=== PATIENT | male | born 1960 | race Caucasian/White ===

== ENCOUNTER 2024-09-28 10:17 | Observation (INO) ==
--- NOTE | 2024-09-15 13:08 | PAT Medication Instructions ---
Medication Instructions Date of Service September 15, 2024 Home Medications cholecalciferol (vitamin D3) 125 mcg (5,000 unit) tablet (Vitamin D3) 125 mcg PO QAM verapamil 240 mg tablet,extended release 240 mg PO QAM diclofenac sodium 75 mg tablet,delayed release 75 mg PO QAM dutasteride 0.5 mg-tamsulosin ER 0.4 mg capsule ext.release 24hr mphas 1 cap PO QAM gabapentin 100 mg tablet 100 mg PO QAM PRN potassium gluconate 550 mg tablet 0 meq PO QAM metronidazole 0.75 % topical gel 1 applic topical DAILY PRN ASK your surgeon for instructions diclofenac sodium 75 mg tablet,delayed release 75 mg PO QAM STOP taking 24 hours before surgery metronidazole 0.75 % topical gel 1 applic topical DAILY PRN DO NOT take the morning of surgery cholecalciferol (vitamin D3) 125 mcg (5,000 unit) tablet (Vitamin D3) 125 mcg PO QAM potassium gluconate 550 mg tablet 0 meq PO QAM Take morning of surgery With a small sip of water, OTHERWISE NOTHING TO EAT OR DRINK AFTER MIDNIGHT: verapamil 240 mg tablet,extended release 240 mg PO QAM dutasteride 0.5 mg-tamsulosin ER 0.4 mg capsule ext.release 24hr mphas 1 cap PO QAM gabapentin 100 mg tablet 100 mg PO QAM PRN(if needed) Other Notes If you have any questions please call us at [phone] or [phone] or [phone] or [phone]
--- NOTE | 2024-09-21 10:39 | Anesthesiology Consultation ---
Date of Service September 21, 2024 Assessment & Plan (1) Encounter for pre-operative examination: - Infectious disease screening: Per assessment on 09/21/24- No known recent infectious disease contacts or current infectious disease symptoms. - Outpatient joint assessment: Pt currently scheduled for inpatient pathway. If surgeon requests review for outpatient joint pathway, patient is not recommended candidate for outpatient joint program from anesthesia standpoint based on available information. - PCP visit (09/16/24): "Based on the patient's HPI and physical examination I feel that the patient is clinically optimized for the given surgical procedure.. labs and EKG done through [facility]. Unable to access them at this time. As long as labs and EKG are normal and patient gets clearance from Cardiology I feel that the patient is clinically optimized for the given procedure from a Family Medicine standpoint." Preop testing forwarded to PCP for continuity of care- unremarkable findings. - Patient acceptable risk for surgery pending cardiology preop office visit ([facility] Cardio, appt /- note in draft). Chart Review Chart Review: Patient seen in Pre Admission Testing Teaching & Discussion Pre-Anesthesia Teaching/Discussion Notes: Instructed NPO after midnight before surgery,except medications with 15 cc of water. Medication instructions provided according to the PAT guidelines. History Surgery Operation Date: 09/28/24 15:05 Proposed Procedures p Right Total Shoulder Arthroplasty Reverse - Armaan Coyne MD Height/Weight Height: 6 ft 1 in Weight: 115.2 kg Allergies Allergy/AdvReac Type Severity Reaction Status Date / Time No Known Allergies Allergy Verified 09/14/24 09:35 Medications Home Medications Medication Instructions Recorded Confirmed Last Taken cholecalciferol (vitamin D3) 125 125 mcg PO QAM 01/26/20 09/14/24 02/07/20 mcg (5,000 unit) tablet (Vitamin D3) verapamil 240 mg tablet,extended 240 mg PO QAM 01/26/20 09/14/24 03/30/24 06:30 release diclofenac sodium 75 mg 75 mg PO QAM 03/18/24 09/14/24 Unknown tablet,delayed release dutasteride 0.5 mg-tamsulosin ER 1 cap PO QAM 03/18/24 09/14/24 03/30/24 06:30 0.4 mg capsule ext.release 24hr mphas gabapentin 100 mg tablet 100 mg PO QAM PRN leg cramps 03/18/24 09/14/24 Unknown potassium gluconate 550 mg tablet 0 meq PO QAM 03/18/24 09/14/24 Unknown metronidazole 0.75 % topical gel 1 applic topical DAILY PRN rosacea 03/23/24 09/14/24 Unknown aspirin 81 mg capsule 81 mg PO DAILY 09/21/24 09/21/24 Unknown rosuvastatin 20 mg tablet (Crestor) 20 mg PO DAILY 09/21/24 09/21/24 Unknown Past Medical History Medical History Acquired pes planovalgus of right foot Enlarged prostate History of colon polyps History of diverticulitis (~2018) History of DVT (deep vein thrombosis) (2015) RLE, s/p trauma History of kidney stones (~2022) Hypertension Left ventricular outflow tract obstruction Dynamic HOCM Follows with Masha Matthew Osteoarthritis Restless leg syndrome Rosacea SI (sacroiliac) joint inflammation SI joint Injection 03/2024 Sleep apnea Non-compliant with CPAP Exercise / Class Metabolic Activity II 4-5 Yardwork/Stairs/Walk up hill (one FS: no CP, no SOB) Past Family History Family History Other No significant family history Past Surgical History Surgical History H/O abdominal surgery (~2018) Hernia surgery-infection with MRSA- revision History of ankle surgery right ankle fusion History of arthroscopy of right shoulder History of bursectomy left elbow History of colon resection History of incisional hernia repair History of rotator cuff surgery Left History of surgery on arm Right (hardware) History of tonsillectomy History of tooth extraction Hx of colonoscopy Past Anesthesia History No Hx of Anesthesia Complications and No Family Hx of Anesthesia Complications History of PONV No Hx of PONV and No Hx of Motion Sickness Social History Smoking Status: Never smoker Do You Dip or Chew Tobacco: No Hx Alcohol Use: Yes Alcohol type: beer and hard liquor alcohol intake frequency: a few times a month Hx Substance Use: No substance use type: does not use Review of Systems Patient denies chest pain, shortness of breath, dyspnea on exertion, fever, chills, cough, wheezing, palpitations. Physical Exam Vital Signs BP 105/66 P 83 TEMP 98.1 SP02 98%RA RESP 16 Physical Full cervical extension range of motion. Full TMJ range of motion. TMD 3 finger breaths Mallampati Score II Dentition: missing sides including lower front left side Lungs: clear throughout to auscultation Cardiac: regular rate and rhythm, no murmurs noted Spine: normal Carotid arteries: negative bruit Extremities: no LE edema Lab Results Anesthesia Preop Results Results Anesthesia Widget: WBC 5.66 K/ul (4.8-10.8) 09/21/24 Hgb 12.7 g/dl (14.0-18.0) L 09/21/24 Hct 38.9 % (42.0-52.0) L 09/21/24 Plt 212 K/uL (130-400) 09/21/24 Na 136 mmol/L (136-145) 09/21/24 K 4.6 mmol/L (3.5-5.1) 09/21/24 Cl 103 mmol/L (98-107) 09/21/24 CO2 29 mmol/L (21-32) 09/21/24 BUN 14 mg/dl (6-23) 09/21/24 Creat 0.74 mg/dl (0.6-1.4) 09/21/24 Glucose Level 100 mg/dl (70-99(Fasting)) H 09/21/24 PT 10.3 Seconds (9.0-12.0) 09/21/24 PTT 26 Seconds (21-31) 09/21/24 INR 0.9 (0.9-1.1) 09/21/24 Urine Color Yellow 09/21/24 Urine Appearance Cloudy (Clear) A 09/21/24 Urine pH 6.5 (4.5-7.5) 09/21/24 Urine Specific [place] 1.019 (1.000-1.030) 09/21/24 Urine Protein Negative (Negative) 09/21/24 Urine Glucose (UA) Negative (Negative) 09/21/24 Urine Ketones Negative (Negative) 09/21/24 Urine Blood Negative (Negative) 09/21/24 Urine Nitrite Negative (Negative) 09/21/24 Urine Bilirubin Negative (Negative) 09/21/24 Urine Urobilinogen Negative (Negative) 09/21/24 Urine Leukocyte Esterase Negative (Negative) 09/21/24 Urine WBC (Auto) 0-5 /hpf (0-5) 09/21/24 Urine RBC (Auto) 0-2 /hpf (0-2) 09/21/24 Urine Hyaline Casts (Auto) 0-2 /lpf (0-2) 09/21/24 Urine Epithelial Cells (Auto) 0-2 /hpf (0-2) 09/21/24 Urine Bacteria (Auto) None Seen (None Seen) 09/21/24 Blood Type A Positive 09/21/24 Antibody Screen NEGATIVE 09/21/24 Testing Electrocardiogram Date: 08/02/24 Sinus rhythm with PACs at 98bpm. Left posterior fascicular block. Septal infarct (cited on or before 03/28/2024). Chest X-Ray Date: 03/23/24 Findings: + NAD Echocardiogram Date: 09/19/24 LVEF 55 to 59%. Grade 3 diastolic dysfunction. The inducible peak instantaneous LV outflow tract gradient is 33 mmHg. Asymmetric hypertrophy involves the septum. The maximal LV thickness at end diastole is 1.9 cm. Mild pulmonary hypertension. Estimated PASP 40 mmHg. Dilated IVC with reduced collapsibility with sniff indicates an elevated right atrial pressure of 15 mmHg. Mild AR/MR/TR. Stress Test Date: 06/27/24 Nondiagnostic for ischemia due to failure to reach greater than 85% MPHR. LVEF 60 to 64%. Small sized basal posterior and lateral wall motion abnormality with akinesis of the segments. Mid cavitary peak gradient with exercise is approximately 23 mmHg. LVOT peak gradient with exercise is approximately 12 mmHg. Other Testing Cardiac CT Date: 09/01/24 Findings are consistent with CAD-RADS category 1 (minimal CAD with 1% - 24% stenosis), The Agatston calcium score is 13. The exam quality is good (mild artifacts are present). The patients age and sex matched coronary calcium content is 32 % (CARUSO). Coronary Findings: There is right dominant coronary anatomy. The exam quality is good (mild artifacts are present). The Agatston calcium score is 13. The left main Agatston calcium score is 4. The LAD Agatston calcium score is 10. The patients age and sex matched coronary calcium content is 32 % (CARUSO). Left main coronary arterial wall contains calcified plaque. The left main coronary artery <25% stenosis. The proximal left anterior descending artery is not stenotic. The mid left anterior descending coronary arterial wall contains calcified plaque. The mid left anterior descending coronary artery has minimal (<25% ) stenosis. The distal left anterior descending artery is not stenotic. The left descending artery has 2 diagonal branches. The circumflex is well visualized and is normal with no plaque or stenosis. The circumflex artery has 1 obtuse marginal branches. The obtuse marginal branches are visualized and are not stenotic. The right coronary artery is well visualized and is normal with no plaque or stenosis. The right posterior lateral coronary artery is not stenotic. The posterior descending coronary artery is not stenotic. The aortic root and proximal ascending aorta are normal. The descending thoracic aorta is normal in size. The main pulmonary artery and the bifurcation are normal. The pulmonary venous drainage is normal. The pericardium is of normal thickness without evidence of significant pericaridal effusion.
--- NOTE | 2024-09-27 18:58 | History & Physical Report ---
Date of Service September 27, 2024 Assessment & Plan (1) Rotator cuff tear arthropathy of right shoulder: Plan: Rotator cuff arthropathy right shoulder with pain and weakness despite partial repair rotator cuff with balloon arthroplasty. Progressive arthropathy since balloon resorption. Patient essentially has pseudoparalysis with poor overhead function and failed limited goals PT. Proceed with reverse total shoulder replacement and debridement of any remnants of the balloon and will require excisional debridement of old suture anchors and suture material.. (2) Failure of rotator cuff repair: History of Present Illness Chief Complaint: Chronic progressive right shoulder pain weakness Primary Care Provider: Tita Worley PA-C 64-year-old male who has chronic right shoulder pain despite having had a rotator cuff repair with a balloon arthroplasty. Since balloon resorption patient's had proximal migration humerus and progressive rotator cuff arthropathy. Clinically failed rotator cuff repair. Patient denies headaches, sweats, fevers, chills, double vision, blurred vision, cough, sore throat, dysphagia, chest pain, sob, wheezing, n/v/d/c, numbness, tingling, fatigue, urinary symptoms, mood disorders. ROS positive for sleep apnea/loud snoring, rheumatoid arthritis, low back pain, acid reflux hiatal hernia, large prostate, history of kidney stones. Allergies Allergy/AdvReac Type Severity Reaction Status Date / Time No Known Allergies Allergy Verified 09/14/24 09:35 Home Medications Medication Instructions Recorded Confirmed Type cholecalciferol (vitamin D3) 125 125 mcg PO QAM 01/26/20 09/14/24 History mcg (5,000 unit) tablet (Vitamin D3) verapamil 240 mg tablet,extended 240 mg PO QAM 01/26/20 09/14/24 History release diclofenac sodium 75 mg 75 mg PO QAM 03/18/24 09/14/24 History tablet,delayed release dutasteride 0.5 mg-tamsulosin ER 1 cap PO QAM 03/18/24 09/14/24 History 0.4 mg capsule ext.release 24hr mphas gabapentin 100 mg tablet 100 mg PO QAM PRN leg cramps 03/18/24 09/14/24 History potassium gluconate 550 mg tablet 0 meq PO QAM 03/18/24 09/14/24 History metronidazole 0.75 % topical gel 1 applic topical DAILY PRN rosacea 03/23/24 09/14/24 History aspirin 81 mg capsule 81 mg PO DAILY 09/21/24 09/21/24 History rosuvastatin 20 mg tablet (Crestor) 20 mg PO DAILY 09/21/24 09/21/24 History Past Med/Surg History Problem List (Updated 09/27/24 @ 18:56 by Armaan Coyne MD) Rotator cuff tear arthropathy of right shoulder Failure of rotator cuff repair Subacromial impingement of right shoulder Traumatic complete tear of rotator cuff Encounter for pre-operative examination Medical History Osteoarthritis Acquired pes planovalgus of right foot Rosacea History of colon polyps SI (sacroiliac) joint inflammation SI joint Injection 03/2024 History of DVT (deep vein thrombosis) (2015) RLE, s/p trauma Enlarged prostate Restless leg syndrome History of diverticulitis (~2018) Hypertension Left ventricular outflow tract obstruction Dynamic HOCM Follows with Masha Matthew History of kidney stones (~2022) Sleep apnea Non-compliant with CPAP Surgical History History of arthroscopy of right shoulder History of rotator cuff surgery Left History of surgery on arm Right (hardware) H/O abdominal surgery (~2018) Hernia surgery-infection with MRSA- revision History of tonsillectomy History of tooth extraction History of ankle surgery right ankle fusion Hx of colonoscopy History of colon resection History of incisional hernia repair History of bursectomy left elbow Family History Other No significant family history Social History Smoking Status: Never smoker Second Hand Exposure: No; Do You Dip or Chew Tobacco: No; Tobacco Cessation Education Requested by Patient: No Hx Alcohol Use: Yes Alcohol type: beer and hard liquor Hx Substance Use: No Preferred Language: Turkish Communication Ability: Effective House Wrecker Required: No Beliefs That Will Affect Care: None Current Living Situation: Spouse Other Information That Helps Us Care for You: No Feels Safe at Home: Yes Safety Concerns: Feels Safe At This Time Assistive Devices: Contacts Review of Systems All systems reviewed & are unremarkable except as noted in HPI & below Physical Exam Constitutional: WD/WN, vitals as above Respiratory: normal respiratory effort; no respiratory distress Cardiovascular: Rate/Rhythm: regular rate and regular rhythm Musculoskeletal: Right shoulder with subacromial crepitation painful range of motion with active forward flexion 110 degrees with passive flexion 170. Active abduction 70 degrees with passive abduction 120 degrees. Weakness with resisted strength testing and otherwise neurovascular exam is normal. Skin: no rashes, warm and dry Neurologic: normal touch/pain/proprioception Psychiatric: A+Ox3, euthymic affect Results & Data Diagnostic Findings Radiographs demonstrate proximal migration of the humerus consistent with balloon resorption and failed partial repair rotator cuff to prevent proximal migration with progressive rotator cuff arthropathy.
[~2024-09-28 10:17] MED LIST: BUPIVACAINE 0.5 % 5 MG/1 ML PF 10ML VIAL ONE; MIDAZOLAM HCL 1 MG/ML 2ML VIAL ONE; MISSING Provider Signature on ORDER(s) SCH; fentaNYL citrate PF 100 MCG/2 ML VIAL ONE
[2024-09-28] MEDS: dexAMETHasone**PF** 10 MG/ML VIAL IV SCH (11:25)
[2024-09-28] MEDS: CeleBREX 200 MG CAP PO SCH (11:25)
[2024-09-28] MEDS: ACETAMINOPHEN 500 MG TAB PO SCH ×2 (11:25→22:05)
[2024-09-28] MEDS: FAMOTIDINE 20 MG TAB PO SCH (11:25)
[2024-09-28] MEDS: METOCLOPRAMIDE HCL 10 MG TABLET PO SCH (11:26)
[2024-09-28] MEDS: LR 15ML/HR IV SCH (11:26)
[2024-09-28] MEDS: GABAPENTIN 600 MG DOSE PO SCH (11:26)
[2024-09-28] MEDS: LR 60ML/HR IV SCH (11:26)
[2024-09-28] MEDS ORDERED: LIDOCAINE 2% 2 ML VIAL/AMP(20MG/ML) INFIL ONE (12:12)
[2024-09-28] MEDS ORDERED: ROCURONIUM BROMIDE 10 MG/ML 5 ML VIAL IV ONE (12:12)
[2024-09-28] MEDS ORDERED: PROPOFOL IV EMULSION 10 MG/ML 20 ML VIAL IV ONE (12:12)
[2024-09-28] MEDS ORDERED: ePHEDrine sulfate 50 MG/ML AMP IV PRN (12:44)
[2024-09-28] MEDS ORDERED: PROMETHAZINE HCL 6.25 MG in SODIUM CHLORIDE 0.9% 50 ML IV PRN (12:44)
[2024-09-28] MEDS ORDERED: ATROPINE SULFATE 0.1 MG/ML 10ML SYR IV PRN (12:44)
[2024-09-28] MEDS ORDERED: ONDANSETRON INJ 2 MG/ML 2 ML VIAL IV PRN ×2 (12:44→18:10)
[2024-09-28] MEDS ORDERED: fentaNYL citrate PF 100 MCG/2 ML VIAL IV PRN (12:44)
[2024-09-28] MEDS: TRANEXAMIC ACID 1,000 MG **IV Pre-op IV SCH (12:49)
--- NOTE | 2024-09-28 12:50 | History & Physical Bridge Note ---
Date of Service September 28, 2024 History & Physical Bridge Note I have examined the patient, reviewed the History & Physical and in the interval since the performance of the History & Physical I have noted the following changes of clinical significance: no changes noted
[2024-09-28] MEDS: ceFAZolin 2000MG 2,000 MG/15 ML SYR IV SCH ×2 (13:02→20:12)
[2024-09-28] MEDS ORDERED: ePHEDrine sulfate 50 MG/ML AMP ONE (13:14)
[2024-09-28] MEDS ORDERED: ePHEDrine sulfate 50 MG/5 ML SYR ONE (13:14)
[2024-09-28] MEDS ORDERED: KETAMINE HCL 10MG/ML SYR ONE (13:37)
[2024-09-28] MEDS ORDERED: ONDANSETRON INJ 2 MG/ML 2 ML VIAL ONE (15:04)
[2024-09-28] MEDS: TRANEXAMIC ACID 1,000 MG **IV Intra-op IV SCH (15:48)
[2024-09-28] MEDS ORDERED: SUGAMMADEX SODIUM 200 MG/2 ML VIAL IV ONE ×3 (15:50→15:51)
--- NOTE | 2024-09-28 16:22 | Operative Report ---
Post Operative Report Pre & Post Diagnosis Operation Date: 09/28/24 12:45 Pre-Op Diagnosis: Right Shoulder rotator cuff arthropathy with osteoarthritis, failed partial rotator cuff repair with balloon arthroplasty. Post-Op Diagnosis: Right Shoulder cuff arthropathy with osteoarthritis, failed partial rotator cuff repair with balloon arthroplasty. I identified the patient and participated in the time-out.: Yes Procedure Operation Date: 09/28/24 12:45 Actual Procedures p Right Reverse Total Shoulder Arthroplasty(Right), excisional debridement sutu re anchors and suture tapes and scarred subacromial bursa and torn rotator cuff.- Armaan Coyne MD Surgeon Armaan Coyne MD Media Planner Adalberto GUERIN Estimated Blood Loss 300 Findings Consistent with Post-Op Diagnosis Specimens Humeral head Drains 2 Hemovac Anesthesia Type General Regional Complications none Disposition Disposition: Recovery Room Indications 64-year-old male status post arthroscopic partial repair rotator cuff infraspinatus tendon with limited decompression distal clavicle excision and balloon arthroplasty. Over time despite balloon arthroplasty and partial repair patient went on to proximal migration of the humerus consistent with failed rotator cuff repair. Patient's developed rotator cuff arthropathy with [id number] articulation now between greater tuberosity and acromion process and a pseudo paralytic shoulder. Description of Procedure The patient was taken to the operating room and anesthetized under regional block and general anesthetic. The patient was positioned on the operating table in a 30 beach chair position with a towel roll under the medial border of the right scapula. The arm was draped free to be able to manipulate the shoulder as needed. The right upper extremity was prepped and draped in usual sterile fashion. Exam demonstrated preoperatively only had 70 degrees flexion and abduction to 45 degrees prior to anesthesia. Passive range of motion was 170 degrees forward flexion and abduction and 80 degrees external rotation. There were old scars from arthroscopic procedure. These are all well-healed. There is no erythema there is no particular swelling there is no drainage of any type. No increased warmth about the shoulder. There was crepitation. An anterior deltopectoral approach was performed. A longitudinal incision was made in the deltopectoral interval. The skin was incised sharply. Subcutaneous flaps were elevated off the fascia. The cephalic vein was dissected out and retracted medial with the pectoralis and crossing veins were tied off and divided.. The clavipectoral fascia was divided at the lateral margin of the conjoined tendon and extended up to the CA ligament. The following findings were noted there was a thickened scarred subacromial bursa material between the greater tuberosity and the acromion likely remnants of the balloon. This was all debrided out thoroughly. Biceps tendon had prior tenotomy or rupture there was a remnant of tendon tissue remaining. The subscapularis tendon tissue had tendinopathy and thinning with some reasonably thick inferior subscapularis tendon but the upper aspect was thinner tissue. The supraspinatus tendon was torn and retracted the infraspinatus tendon repair had failed and there was a friable degenerative end of the tendon. The teres minor was intact still. There were developing greater tuberosity spurs. There were spurs on the lesser tuberosity. There was some inferior articular spurs on humeral head as well.. The upper centimeter of the pectoralis was released for inferior exposure. A self-retaining retractor was placed. The biceps tendon remnant at the level of the pectoralis release was secured to the pectoralis tendon with [id number] #2 FiberWire suture and the remainder of the proximal tendon sheath and biceps remnant was resected. The subscapularis muscle fibers were split longitudinally at the level of the circumflex vessels. The circumflex vessels were identified and tied off with silk ties and divided laterally. A Kitner elevator was used to free up the inferior fibers of the subscapularis off of the capsule. The axillary nerve was identified with a tug test and protected with a blunt Madhu retractor between the nerve and the capsule. The subscapularis tendon was then taken down off of the lesser tuberosity subperiosteally, a Vicryl traction suture was placed and a subperiosteal dissection was performed along the neck of the humerus as the arm was gradually externally rotated exposing the humeral head. The humeral head findings demonstrated moderate osteoarthritic changes grade 2 and 3 more wear superiorly and area of rotator cuff tear moderate to small circumferential osteophytes. retractors were readjusted and the inferior osteophytes were all resected using a rongeur . A Hairston elevator was used to assist in releasing the capsule of the neck of the humerus. The capsule was divided with Omer scissors down to the glenoid released off the anterior glenoid and the rotator interval was released to meet the capsular release and a 360 release of the subscapularis was accomplished. A Fukuda retractor was placed into the joint retracting the humeral head posterior. Glenoid findings demonstrated moderate arthritic changes but no exposed bone on the glenoid. Degenerative changes of the labrum and during exposure there were spurs anteriorly and inferiorly on the glenoid. The labrum and biceps tendon was resected. an anterior-inferior and posterior inferior capsular release were performed with electrocautery and a Hairston elevator on bone with the axillary nerve protected inferiorly by the retractor. With this exposure it was more readily available to visualize the infraspinatus and supraspinatus tendon tears which were retracted back toward the glenoid and both had friable frayed ends and this tissue was debrided back. There was some more scarred bursal tissue possibly remnants of the balloon that were debrided at this time as well. Attention was then taken to the humeral preparation. The cutting guide was placed into the humeral head. It was positioned at 20 of retroversion. Oscillating saw was used to resect the humeral head giving the cut above the level of the posterior rotator cuff insertion site. The old suture anchors whic h were peek anchors with ultra braid suture and tapes were excised including all suture material and anchors. The humerus was then prepared for the stem. I used the ascend flex stem from [employer]. The sizing broaches were used followed by trial broaches up to a size 7B Long which had the appropriate fit and fill. The appropriate sized cut protector was placed. The humerus was then retracted posterior to the glenoid. The glenoid was sized for a 29 baseplate. The guide for the baseplate was positioned in a 10 inferior tilt and the central drill hole was made. The reamer for the 29 mm baseplate was used. The central drill was widened for the peg. The hydroxyapatite coated to aequalis 29 mm standard post baseplate was impacted into position. The base plate was transfixed with superior and inferior locking screws and anterior and posterior compression screws with stable fixation. The fan reamer was used for the 42 millimeter glenoid sphere. After irrigation the 42 mm centered glenoid sphere was impacted onto the baseplate and the security screw was tightened. Attention was taken back to the humerus. The cut protector was removed and the +0 high offset humeral tray trial was assembled to the trial stem rotated appropriately to get bony coverage and then screwed in position. A trial reduction was performed. There is little bit of shock even with a +9 so we went ahead and put the +6 high offset humeral tray in place and then with a +6 insert this gave satisfactory stability and no shuck. The trials were removed. 3 drill holes are made into the harder bone in the bicipital groove area and 3 #5 FiberWire sutures were placed transosseously. The canal was irrigated with pulsatile saline solution. The final component was assembled. The final component was 7B long stem ascend flex type with +6 mm high offset tray with a 42 mm / +6 mm reversed flex polyethylene insert. This was then impacted into the humerus with a tight press-fit. It was reduced to the glenoid sphere. Stability was verified. Subscapularis was repaired with the #5 FiberWire sutures using Woody-Frank suture technique. Lateral row soft tissue repair was performed with #2 FiberWire [id number] sutures. The pectoralis was repaired with #2 FiberWire [id number] sutures reinforcing the biceps tendon repair. The arm was taken through a range of motion which demonstrated 150 degrees forward elevation and 100 degrees abduction and 80 degrees external rotation. The implant was stable through the range of motion tested. A 3-minute Betadine soak was performed. The wound was then copiously irrigated with pulsatile lavage saline solution. 2 Hemovac drains were placed. The deltopectoral interval was closed with [id number] #1 Vicryl sutures. The subcutaneous tissues were closed with 2-0 Vicryl sutures. The skin was closed with surgical nikunj. A Silverlon sterile dressing was applied and a shoulder immobilizer. TRUONG Mendez, my physician assistant professor of chemistry acted as first line supervisor throughout the procedure .He performed functions including patient positioning, arm positioning, prepping and draping, soft tissue retraction, instrument management, suture management and performed the subcutaneous and skin closure and will participate in the postoperative care of the patient. I attest to the content of the Intraoperative Record and any orders documented therein. Any exceptions are noted below.
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
--- OUTSIDE RECORDS SUMMARY | 2024-09-28 16:39 | External Medical Summary | Summary of Care ---
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 2 Each 5 1 Active Diclofenac Sodium 75 MG Oral Tablet Delayed Release (Voltaren)Indicati ons:Sacroiliitis (HCC) Take 1 Tablet by mouth in [...] 240 MG Oral Tablet Extended Release (Isoptin SR)Indications:Hyp ertrophic non-obstructive cardiomyopathy (HCC) Take 1 Tablet by mouth in the morning. 90 Tablet 4 5 Active Aspirin 81 MG Oral Tablet Chewable (Aspirin 81) Take 1 Tablet by mouth in the morning. Active Rosuvastatin Calcium 20 MG Oral Tablet (Crestor) Take 1 Tablet by mouth in the morning. 30 Tablet 11 5 Active Dutasteride-Tamsul osin HCl 0.5-0.4 MG Oral Capsule Take 1 Capsule by mouth in the morning. 90 Capsule 3 4 09/27/19 25 Discontin ued(Refil l) documented as of this encounter (statuses as of 09/28/2024) Active Problems Problem Noted Date Diagnosed Date Hypertrophic non-obstructive cardiomyopathy 08/19 LVH (left ventricular hypertrophy) 04/28/2018 Incisional hernia, without obstruction or gangre ne 11/26/2016 Vitamin D insufficiency 10/01/2015 BPH (benign prostatic hyperplasia) 09/12/2015 Diverticulosis of large intestine without hemorr imelda 09/12/2015 Obstructive sleep apnea of adult 09/12/2015 documented as of this encounter (statuses as of 09/28/2024) Resolved Problems Problem Noted Date Diagnosed Date [...] as of this encounter (statuses as of 09/28/2024) Immunizations Name Administration Dates Next Due COVID-19 mRNA, LNP-s, No Pre serve, 2-Dose Series ([employer]) 06/15/2021 COVID-19, MRNA-LNP, PF, 30 M CG/0.3 mL, 12 YRS AND ABOVE, IM (Fluentify-Comirnaty) 07/08/2023 Covid-19, Mrna, Lnp-s, Pf, B ivalent, [...] No 09/16/2024 Does the household have a re gular source of income? 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 Answer Date of Assessment Author No 06/22/2015 1:15 PM EST Shama Uribe RN * Are you blind or do [...] of Assessment Author No 06/22/2015 1:15 PM EST Shama Uribe RN * Because of a physical, mental, [...] Entry Date Author No 06/22/2015 1:15 PM EST Shama Uribe RN documented in this encounter Plan of Treatment Upcoming Encounters Date Type Department Care Team (Late st Contact Info) Description 10/13/2024 10:00 AM EST Appointment Radiology, [place] [address] [place] [address] 10/13/2024 12:00 PM EST Appointment PET CT IMAGING, [place] [address] [place] [address] 10/31/2024 8:30 AM EDT Laboratory Laboratory, [place] [address] [phone] [facility] [address] [address] 12/07/2024 9:20 AM EDT Office Visit Family [facility], [place] [address] [phone] Mariusz Montiel PA-C [address] [address] 09/27/2025 3:45 PM EST Office Visit Urology [facility] [address] [phone] German Urbano Jr., MD [address] [id number] Pending Results Name Type Priority Associated Diagnoses Date /Time REFERRED TEST, [facility] (LAB USE ONLY) Lab Routine LVH (left ventricular hypertrophy) Hypercalcemia 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 Screw Selftap 3.5x18 204.818 - [id number] Implanted:Qty : 5 on 06/22/2015 by Gurwinder Funez Jr., [place] [facility] [place]: Wrist SYNTHES 204.818 / / Screw Locking Va 24mm - [id number] Implanted:Qty : 2 on 06/22/2015 by Gurwinder Funez Jr., [place] [facility] [place]: Wrist SYNTHES 02.210.124 / / Scrw Lkg 2.4mm Va 22mm - [id number] Implanted:Qty : 2 on 06/22/2015 by Gurwinder Funez Jr., [place] [facility] [place]: Wrist SYNTHES 02.210.122 / / Screw Selftap 3.5x16 204.816 - [id number] Implanted:Qty : 1 on 06/22/2015 by Gurwinder Funez Jr., [place] [facility] [place]: Wrist SYNTHES 204.816 / / Dbx 2.5cc 130873 - [id number] - [id number] Implanted:Qty : 1 on 06/22/2015 by Gurwinder Funez Jr., [place] [facility] [place]: Wrist MUSCULOSKELETAL TRANSPLANT FND 09/21/2016 [id number] / [id number] / Mesh Flat Sheet 10x14 [id number] - [id number] Implanted:Qty : 1 on 11/25/2016 by Sarmad Sierra DO at OR [facility] N/A: Abdomen CR BARD : DAVOL 07/14/2021 [id number] / / [id number] Bard Soft Mesh Implanted:Qty : 1 on 11/03/2017 by Layne Ernst MD [place] [facility] [place]/A: Abdomen 08/16/2022 [id number] / [id number] / [id number] documented as of this encounter Visit Diagnoses Diagnosis LVH (left ventricular hypertrophy) Cardiomegaly Hypercalcemia 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 No Does the patient have Health Care Power of Attor edlia? No * Full Code Date Activated Date [...] Directives occurred with: Not Discussed Care Teams Cone Tender Relationship Specialty Start Date End Date Tita Worley PA-C [address] [facility] [address] [address] PCP - General Physician Life Manager 10/13/19 documented as of this encounter
--- OUTSIDE RECORDS SUMMARY | 2024-09-28 16:39 | External Medical Summary | Summary of Care ---
Author Name Unknown Organization [facility] Address [address] [facility] [facility] [address] Phone [phone] Care Team Providers Care Polishing Wheel Repairer Name Role Phone Tita Worley PA-C Primary Care Provider +1- [phone] Reason for Visit * Reason Onset Date Comments Advice 09/23/2024 Encounter Details Date Type Department Care Team (Late st Contact Info) Description 09/23/2024 Telephone Cardiology, [place] [address] [place] [address] Jimena Joseph PA-C [address] [place] [address] Advice Allergies No known active allergiesdocumented as of this encounter (statuses as of 09/23/2024) Medications SURGICAL COMPRESSION STOCKING 20 to 30mm [...] as of this encounter (statuses as of 09/23/2024) Active Problems Problem Noted Date Diagnosed Date Hypertrophic non-obstructive cardiomyopathy 08/19 LVH (left ventricular hypertrophy) 04/28/2018 Incisional hernia, without obstruction or gangre ne 11/26/2016 Vitamin D insufficiency 10/01/2015 BPH (benign prostatic hyperplasia) 09/12/2015 Diverticulosis of large intestine without hemorr imelda 09/12/2015 Obstructive sleep apnea of adult 09/12/2015 documented as of this encounter (statuses as of 09/23/2024) Resolved Problems Problem Noted Date Diagnosed Date [...] as of this encounter (statuses as of 09/23/2024) Immunizations Name Administration Dates Next Due COVID-19 mRNA, LNP-s, No Pre serve, 2-Dose Series (Eniram) 06/15/2021 COVID-19, MRNA-LNP, PF, 30 M CG/0.3 mL, 12 YRS AND ABOVE, IM ([facility]) 07/08/2023 Covid-19, Mrna, Lnp-s, Pf, B ivalent, [...] 09/16/2024 Does the household have a re lar source of income? 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 [address] * Telephone Encounter - Livia Ruvalcaba OSA - 09/23/2024 8:32 AM EST Person calling: Gianna Relationship to patient: [place] Phone/Fax to return call: [phone] Reason for call(brief): advice Pharmacy: N/A Provider Name:Jimena Joseph Detailed message to office:COURT Katz, from [place]. Gianna states patients procedure is Thursday and asks that Jimena sign her note so they can pass patient. Please advise. documented in this encounter Plan of Treatment Upcoming Encounters Date Type Department Care Team (Late st Contact Info) Description 09/27/2024 3:45 PM EST Office Visit Urology [place] [facility] [address] [facility] [address] [place] [address] German Urbano Jr., MD [address] [place] [address] 10/13/2024 10:00 AM EST Appointment Radiology, [place] [address] [place] [address] 10/13/2024 12:00 PM EST Appointment PET CT [facility], [facility] [address] [place] [address] 10/31/2024 8:30 AM EDT Laboratory Laboratory, [place] [address] [phone] Jaspreet [address] [place] [address] 12/07/2024 9:20 AM EDT Office Visit Family [facility], [place] [address] [phone] Mariusz Montiel PA-C [address] [address] Health Maintenance Due Date Last Done Comments [...] this encounter Medical Devices Implanted Type Area Calcine Furnace Tender Device Identifier Shelf Expiration Date Model / Serial / Lot [place] Volar Plate 9h Right Implanted:Qty : 1 on 06/22/2015 by Gurwinder Funez Jr., MD at [place] [facility] Right: Wrist SYNTHES 02.110.009 S / / Description:Implant from set . Screw Selftap 3.5x18 204.818 - [id number] Implanted:Qty : 5 on 06/22/2015 by Gurwinder Funez Jr., MD at OR [facility] [place] Right: Wrist SYNTHES 204.818 / / Screw Locking Va 24mm - [id number] Implanted:Qty : 2 on 06/22/2015 by Gurwinder Funez Jr., MD at OR [facility] [place] Right: Wrist SYNTHES 02.210.124 / / Scrw Lkg 2.4mm Va 22mm - [id number] Implanted:Qty : 2 on 06/22/2015 by Gurwinder Funez Jr., MD at OR [facility] [place] Right: Wrist SYNTHES 02.210.122 / / Screw Selftap 3.5x16 204.816 - [id number] Implanted:Qty : 1 on 06/22/2015 by Gurwinder Funez Jr., MD at OR [facility] [place] Right: Wrist SYNTHES 204.816 / / Dbx 2.5cc [id number] - [id number] - [id number] Implanted:Qty : 1 on 06/22/2015 by Gurwinder Funez Jr., MD at OR [facility] [place] Right: Wrist MUSCULOSKELETAL TRANSPLANT FND 09/21/2016 [id number] / [id number] / Mesh Flat Sheet 10x14 [id number] - [id number] Implanted:Qty : 1 on 11/25/2016 by Sarmad Sierra DO at OR [facility] N/A: Abdomen CR BARD : DAVOL 07/14/2021 [id number] / / [id number] Bard Soft Mesh Implanted:Qty : 1 on 11/03/2017 by Layne Ernst MD at OR [facility] N/A: Abdomen 08/16/2022 [id number] / [id number] / [id number] documented as of this encounter Advance Directives [...] Directives occurred with: Not Discussed Care Teams Polishing Wheel Repairer Relationship Specialty Start Date End Date Tita Worley PA-C [address] [facility] [address] [facility] [place] [phone] PCP - General Physician Bicycle Assembler 10/13/19 documented as of this encounter
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
--- OUTSIDE RECORDS SUMMARY | 2024-09-28 16:40 | External Medical Summary | Summary of Care ---
Author Name Unknown Organization [facility] Address [address] [place] [address] Phone [phone] Care Team Providers Care Client Administrator Name Role Phone GaurangTita ruiz Richard CARPENTERC Primary Care Provider +1- [phone] Reason for Referral * Precert (Within 10 days (routine)) - Pending Review Specialty Diagnoses / Procedures Referred By Contac t Referred To Contact Radiology Diagnoses LVH (left ventricular hypertrophy) Procedures PET CT MYOCARDIAL METABOLIC FUNCTION Selvin Hoffman MD [address] [place] [address] Phone: tel: fax: Referral ID Status Reason Start Date Expiration Date V isits Requested Visits Authorized [id number] Pending Review 09/23/[phone] * Precert (Within 10 days (routine)) - Pending Review Specialty Diagnoses / Procedures Referred By Contac t Referred To Contact Radiology Diagnoses LVH (left ventricular hypertrophy) Procedures NM MYOCARDIAL PERFUSION SPECT SINGLE REST OR STRESS Selvin Hoffman MD [address] [place] [address] Phone: tel: fax: Referral ID Status Reason Start Date Expiration Date Visits Requested Visits Authorized [id number] Pending Review Precert 09/23/[phone] Encounter Details Date Type Department Care Team (Late st Contact Info) Description 09/22/2024 10:30 AM EST Telemedicine Cardiology [facility] [address] [place] [address] Selvin Hoffman MD [address] [place] [address] LVH (left ventricular hypertrophy)*; Hypercalcemia; Atherosclerosis of [place] coronary artery of [place] heart with angina pectoris (HCC) Allergies No known active allergiesdocumented as of this encounter (statuses as of 09/22/2024) Medications SURGICAL COMPRESSION STOCKING 20 to 30mm [...] as of this encounter (statuses as of 09/22/2024) Active Problems Problem Noted Date Diagnosed Date Hypertrophic non-obstructive cardiomyopathy 08/19 LVH (left ventricular hypertrophy) 04/28/2018 Incisional hernia, without obstruction or gangre ne 11/26/2016 Vitamin D insufficiency 10/01/2015 BPH (benign prostatic hyperplasia) 09/12/2015 Diverticulosis of large intestine without hemorr imelda 09/12/2015 Obstructive sleep apnea of adult 09/12/2015 documented as of this encounter (statuses as of 09/22/2024) Resolved Problems Problem Noted Date Diagnosed Date [...] as of this encounter (statuses as of 09/22/2024) Immunizations Name Administration Dates Next Due COVID-19 mRNA, LNP-s, No Pre serve, 2-Dose Series (Cympel) 06/15/2021 COVID-19, MRNA-LNP, PF, 30 M CG/0.3 [...] Industry Job Start Date Job End Date 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 History Sarmad Victor is a 64 year old year old who had a shoulder # in March 2024 and as part of preoperative check up found to have EKG changes that led to cardiology eval. He has not had any problems with PETERSON, chest pains, syncope. 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 He has not had any symptoms or limitations. He gets light headed (when it's really hot) when he bends forward--happens sometimes. Update 09/22/24 As per patient preference, connection with the patient via audio only occurred. The patient was informed this was a phone call only visit and was identified by name and date of . The patient agreed to participate. Total call duration was 30 minutes. Review of cardiac Symptoms (-) dyspnea (-) chest pain (-) syncope (-) palpitations Physical Activity Level: As above. Hydration Level: Drinks at least 50oz Family History: Mother: 72 years, smoker and PAD and gangrene, PE, Factor V Leiden Grandfather 67 years [place] Father: 76 years, lung cancer and lymphoma, smoker. Other: 1 sibling: sister has no heart problems, Factor V 2 children: no heart issues. Past Medical History: Diagnosis Date Diverticulosis of large intestine without hemorrhage 09/12/2015 DVT (deep venous thrombosis) (HCC) 07/03/2015 Related to trauma, hematology work up negative. Hypertrophic cardiomyopathy (HCC) Left ventricular outflow tract obstruction LVH (left ventricular hypertrophy) 04/28/2018 Obstructive sleep apnea of adult 09/12/2015 CPAP Preoperative cardiovascular examination 04/28/2018 Pulmonary embolism (HCC) 06/26/2015 Trauma related, hematology work up negative. Past Surgical History: Procedure Laterality Date BX LYMPH NODE-SUPERFIC Left 06/25/2015 BIOPSY LYMPH NODE OPEN SUPERFICIAL performed by Nasra Brewster MD at OR [facility] COLONOSCOPY 10/26/2008 RADIUS AND ULNA FX W/FIXATION Right 06/22/2015 OPEN TREATMENT OF RADIUS AND ULNA performed by Gurwinder Funez Jr., MD at [facility] REMOVE TONSILS & ADENOIDS, UNDER 12 As a child REPAIR ARM TENDON/MUSCLE Left 2011 Dr. Coyne REPAIR INITIAL INCISIONAL HERNIA N/A 11/25/2016 REPAIR INITIAL INCISIONAL HERNIA STRANGULATED performed by Sarmad Sierra DO at OR [facility] REPAIR INITIAL INGUINAL HERNIA REDUCIBLE AGE 5 OR MORE Right [address] Dr[address] Sierra REPAIR RECURRENT INCISIONAL HERNIA N/A 11/03/2017 REPAIR RECURRENT INCISIONAL HERNIA REDUCIBLE performed by Layne Ernst MD at OR [facility] SACROILIAC JOINT INJECT W/GUIDANCE Left 03/17/2024 INJECTION SACROILIAC JOINT performed by Damaso Morrison DO at OR [facility] Social History Tobacco Use Smoking status: Never Passive exposure: Yes Smokeless tobacco: Never Vaping Use Vaping status: Never Used Substance Use Topics Alcohol use: Yes Alcohol/week: 3.0 standard drinks of alcohol Types: 3 12 oz of beer per week Comment: 1-2 beers infrequently Drug use: No 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 ROS: Constitutional: No change in weight, no weakness or fatigue, no fever, sweats or chills Eyes: No amaurosis fugax Ears: No loss of hearing Mouth/Throat: No snoring, no teeth or gum problems. Pulmonary: No dyspnea, no cough. Cardiac: As above Gastrointestinal: No dysphagia, abdominal pain, no significant heartburn, no blood in stools or black tarry stools. Vascular: no symptoms of claudication. Hematology: Denies bleeding problems. Musculoskeletal: Negative. Skin: Negative Neuro: No TIA/CVA symptoms. : No dysuria, no frequency and no nocturia. Psych: No depression and no anxiety. Current Outpatient Medications Medication Sig Dispense Refill SURGICAL COMPRESSION STOCKING 20 to 30mm knee high. 2 Each 5 Dutasteride-Tamsulosin HCl 0.5-0.4 MG Oral Capsule Take 1 Capsule by mouth in the morning. 90 Capsule 3 Diclofenac Sodium 75 MG Oral Tablet Delayed [...] of patient's allergies indicates: No Known Allergies INVESTIGATIONS: Echocardiography Date IVS/PW Max (cm) Site of max LVH Rest gradient Valsalva gradient Site of obstruction NUNU/LAD BETSY MR LVEF Other findings 08/2024 1.9 Basal sept 33 LVOT-mid 55-59 RVSP 40, RAp 15 Stress Echo Date BP response METS Rest LVOTg Valsalva gradient Exercise gradient Other findings 06/2024 normal 8.4 23 26 23 60-64, akinetic lateral wall CMR Date IVS/PW max (cm) Site AML (mm) LGE % BETSY LVEF NUNU Other Findings 06/03/24 1.9cm Basal sept OK in thinned basal and mid IL 66 49 Rhythm Monitor Type Date NS-Ventricular Tachycardia Atrial fibrillation Other Findings zio 04/2024 - - Coronary Risk Assessment Type Date Findings CCTA 08/2024 <25% LM and mLAD, CCS 32%jasmin Personal Review of prior investigations: CMR reviewed with patient Physical Exam: Phone visit. Synopsis of Disease Profile: The table below provides a summary of the disease morphology, clinical profile, sudden cardiac risk assessment and genetics. Year of Diagnosis 2019 Type Isch CM with ? Compensatory septal LVH Obstruction/max gradients SCD Risk factors Ventricular Tachycardia Syncope (non vagal) Family h/o SCD Max Hypertrophy >30mm Abnormal BP response LGE >15% LA size (mm)/NUNU ICD MR severity Euro-HCM SCD 5 year risk NYHA class Genotype Impression: Cardiomyopathy likely ischemic (old infarct in IL segment) with likely compensatory septal hypertrophy (has VUS in LAMA4 and RYR2), true HCM is unlikely. No evidence of significant CAD to explain IL thinning. Will check alpha gal and PET imaging. The patient is quite asymptomatic. 2. Minimal CAD on CCTA Started baby ASA, and Crestor 3. Sleep apnea but does not use CPAP Needs to see sleep specialist for other options. 4. DVT related to accident 5. Right shoulder injury needs replacement. Scheduled next week. Idiopathic hypercalcemia Seen by endocrinology-- possible parathyroidoma. I would be concerned if he has underlying sarcoidosis which is causing high calcium and also his cardiac phenotype. PET imaging ordered. The following treatment plan was discussed with the patient: Therapeutic Strategy: Mild LVOTO Secondary Causes/Phenocopies: For sarcoid and Fabry's today Sudden cardiac risk assessment: No VT or other high risk features. Exercise: Moderate intensity exercise has been studied in a randomized controlled clinical trial and found to be safe and improve functional capacity (RESET-HCM trial). The 2020 AHA HCM guidelines recommend a Class I indication for moderate intensity recreational exercise at 150-300 minutes per week. Genetics and Family Screening: The autosomal dominant nature of the disease and its implications for progeny were discussed. Screening imaging testing of children and siblings were also discussed. Ifgenetic testing is pursued this would simplify screening in other family members. Prognosis: Good Follow up: 6 months. Total visit time was 30 minutes which included discussion of investigations, disease education and management strategy. CC: Tita Worley PA-C documented in this encounter Miscellaneous Notes * Addendum Note - Tracy Ivey TECH - 09/22/2024 3:18 PM ESTAddended by: TRACY IVEY on: 09/22/2024 03:18 PM Modules accepted: Orders documented in this encounter Plan of Treatment Upcoming Encounters Date Type Department Care Team (Late st Contact Info) Description 09/27/2024 3:45 PM EST Office Visit Urology [facility] [address] [place] [address] German Urbano Jr., MD [address] [address] 10/31/2024 8:30 AM EDT Laboratory Laboratory, [place] [address] [phone] [facility] [address] [address] 12/07/2024 9:20 AM EDT Office Visit [facility], [place] [address] [phone] Mariusz Montiel PA-C [address] [address] Scheduled Orders Name Type Priority Associated Diagnoses Orde r Schedule NM MYOCARDIAL PERFUSION SPECT SINGLE REST OR STRESS Cardiology Routine LVH (left ventricular hypertrophy) Expected: 09/23/2024, Expires: 10/20/[address] MYOCARDIAL METABOLIC FUNCTION Medical Imaging Routine LVH (left ventricular hypertrophy) Expected: 09/23/2024, Expires: 10/20/2025 REFERRED TEST, [facility] (LAB USE ONLY) Lab Routine LVH (left ventricular hypertrophy) Hypercalcemia Atherosclerosis of [place] coronary artery of [place] heart with angina pectoris (HCC) Expected: 10/06/2024, Expires: 09/22/2025 Health Maintenance Due Date Last Done Comments [...] this encounter Medical Devices Implanted Type Area Food Equipment Service Technician Device Identifier Shelf Expiration Date Model / Serial / Lot Mary [place] Volar Plate 9h Right Implanted:Qty : 1 on 06/22/2015 by Gurwinder Funez Jr., MD at OR [facility] Right: Wrist SYNTHES 02.110.009 S / / Description:Implant from set . Screw Selftap 3.5x18 204.818 - [id number] Implanted:Qty : 5 on 06/22/2015 by Gurwinder Funez Jr., MD at OR [facility] Right: Wrist SYNTHES 204.818 / / Screw Locking Va 24mm - [id number] Implanted:Qty : 2 on 06/22/2015 by Gurwinder Funez Jr., MD at OR [facility] Right: Wrist SYNTHES 02.210.124 / / Scrw Lkg 2.4mm Va 22mm - [id number] Implanted:Qty : 2 on 06/22/2015 by Gurwinder Funez Jr., MD at OR [facility] Right: Wrist SYNTHES 02.210.122 / / Screw Selftap 3.5x16 204.816 - [id number] Implanted:Qty : 1 on 06/22/2015 by Gurwinder Funez Jr., MD at OR [facility] Right: Wrist SYNTHES 204.816 / / Dbx 2.5cc 199396 - [id number] - [id number] Implanted:Qty : 1 on 06/22/2015 by Gurwinder Funez Jr., MD at OR [facility] Right: Wrist MUSCULOSKELETAL TRANSPLANT FND 09/21/2016 [id number] / [id number] / Mesh Flat Sheet 10x14 [id number] - [id number] Implanted:Qty : 1 on 11/25/2016 by Sarmad Sierra DO at OR [facility] N/A: Abdomen CR BARD : DAVOL 07/14/2021 [id number] / / [id number] Bard Soft Mesh Implanted:Qty : 1 on 11/03/2017 by Layne Ernst MD at OR [facility] N/A: Abdomen 08/16/2022 [id number] / [id number] / [id number] documented as of this encounter Procedures Procedure Name Priority Date/Time Associated Diagnosis Comments NON-FORMULARY TEST REQUEST Routine 09/22/2024 10:45 AM EST LVH (left ventricular hypertrophy) documented in this encounter Results * NON-FORMULARY TEST REQUEST (09/22/2024 10:45 AM EST) Request accepted/rejec cyrus Accepted 09/22/2024 3:19 PM EST LABORATORY [facility] Performing Lab [facility] 09/22/2024 3:19 PM EST LABORATORY [facility] Test Code 1629 09/22/2024 3:19 PM EST LABORATORY [facility] Test Description alpha galactosidase 09/22/2024 3:19 PM EST LABORATORY [facility] 09/22/2024 10:4 5 AM EST 09/22/2024 10:45 AM EST Narrative LABORATORY [facility] - 09/22/2024 3:19 PM EST Laboratory testing ordered. Approve this testing send to [facility] This non-formulary test request was reviewed by Trae Humphrey MD The pt can now be collected us Selvin Hoffman MD LAB BLOOD ORDERABLES Final Res ult LABORATORY [facility] [address] [facility] [address] documented in this encounter Visit Diagnoses Diagnosis LVH (left ventricular hypertrophy)- Primary Cardiomegaly Hypercalcemia Atherosclerosis of [place] coronary artery of [place] heart with angina pectoris (HCC) documented in [...] Directives occurred with: Not Discussed Care Teams Client Administrator Relationship Specialty Start Date End Date Tita Worley PA-C [address] [facility] [address] [place] [address] PCP - General Physician Coal Yard Supervisor 10/13/19 documented as of this encounter
--- OUTSIDE RECORDS SUMMARY | 2024-09-28 16:40 | External Medical Summary | Summary of Care ---
Author Name Unknown Organization [facility] Address [address] [facility] [place] [address] Phone [phone] Care Team Providers Care Potash Flaker Name Role Phone Tita Worley PA-C Primary Care Provider +1- [phone] Encounter Details Date Type Department Care Team (Late st Contact Info) Description 09/20/2024 Telephone Endocrinology 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 on f ile [...] encounter Miscellaneous Notes * Telephone Encounter - Clarisa Quiles LPN - 09/21/2024 3:26 PM EST left message for patient to call office * Telephone Encounter - Agnes Fernandez OSA - 09/21/2024 3:25 PM EST Pt returning call * Telephone Encounter - Clarisa Quiles LPN - 09/21/2024 10:15 AM EST left message for patient to call office * Telephone Encounter - Clarisa Quiles LPN - 09/20/2024 3:29 PM EST left message for patient to call office * Telephone Encounter - Nikos Arana MD - 09/20/2024 3:11 PM EST Call and inform patient: Parathyroid scan showed a possible parathyroid adenoma vs thyroid nodule of extension of the thyroid lobe. I recommend to obtain a neck US to compare the 2 studies. IMPRESSION Possible left inferior parathyroid adenoma only visualized on SPECT. Alternatively, this could represent posterior extension of the thyroid lobe. documented in this encounter Plan of Treatment Upcoming Encounters Date Type Department Care Team (Late st Contact Info) Description 09/27/2024 3:45 PM EST Office Visit Urology [facility] [address] [facility] [address] [phone] German Urbano Jr., MD [address] [address] 10/31/2024 8:30 AM EDT Laboratory Laboratory, [place] [address] [phone] J[address]reet [address] [address] 12/07/2024 9:20 AM EDT [facility] [address] [phone] Mariusz Montiel PA-C [address] [address] Scheduled Orders Name Type Priority Associated Diagnoses Orde r Schedule US HEAD AND NECK Medical Imaging Routine Primary hyperparathyroidism (HCC) Expected: 09/20/2024 (Approximate), Expires: 10/18/2025 Health Maintenance Due Date Last Done Comments [...] this encounter Medical Devices Implanted Type Area Transportation Technician Device Identifier Shelf Expiration Date Model / Serial / Lot Mary [place] Volar Plate 9h Right Implanted:Qty : 1 on 06/22/2015 by Gurwinder Funez Jr., MD at [place] [facility] Right: Wrist SYNTHES 02.110.009 S / / Description:Implant from set . Screw Selftap 3.5x18 204.818 - [id number] Implanted:Qty : 5 on 06/22/2015 by Gurwinder Funez Jr., MD at [place] [facility] Right: Wrist SYNTHES 204.818 / / Screw Locking Va 24mm - [id number] Implanted:Qty : 2 on 06/22/2015 by Gurwinder Funez Jr., MD at [facility] Right: Wrist SYNTHES 210.124 / / Scrw Lkg 2.4mm Va 22mm - [id number] Implanted:Qty : 2 on 06/22/2015 by Gurwinder Funez Jr., MD at [facility] Right: Wrist SYNTHES 210.122 / / Screw Selftap 3.5x16 204.816 - [id number] Implanted:Qty : 1 on 06/22/2015 by Gurwinder Funez Jr., MD at [place] [facility] Right: Wrist SYNTHES 204.816 / / Dbx 2.5cc [id number] - [id number] - [id number] Implanted:Qty : 1 on 06/22/2015 by Gurwinder Funez Jr., MD at [place] [facility] Right: Wrist MUSCULOSKELETAL TRANSPLANT FND 09/21/2016 [id number] / [id number] / Mesh Flat Sheet 10x14 [id number] - [id number] Implanted:Qty : 1 on 11/25/2016 by Sarmad Sierra DO at OR [facility] N/A: Abdomen CR BARD : DAVOL 07/14/2021 [id number] / / [id number] Bard Soft Mesh Implanted:Qty : 1 on 11/03/2017 by Layne Ernst MD at [place] [facility] N/A: Abdomen 08/16/2022 [id number] / [id number] / [id number] documented as of this encounter Visit Diagnoses Diagnosis Primary hyperparathyroidism (HCC)- Primary Primary hyperparathyroidism documented in this encounter Advance Directives * [...] Directives occurred with: Not Discussed Care Teams Potash Flaker Relationship Specialty Start Date End Date Tita Worley PA-C [address] [facility] [place] [address] PCP - General Physician Quality Assurance Supervisor Trim 10/13/19 documented as of this encounter
--- OUTSIDE RECORDS SUMMARY | 2024-09-28 16:40 | External Medical Summary | Summary of Care ---
Author Name Unknown Organization [facility] Address [address] [facility] [place] [address] Phone [phone] Care Team Providers Care Debt Management Counselor Name Role Phone Tita Worley PA-C Primary Care Provider +1- [phone] Encounter Details Date Type Department Care Team (Late st Contact Info) Description 09/20/2024 Telephone Endocrinology [facility] [place] [address] [place] [address] [place] [address] Nikos Arana MD [address] [place] [address] [place] [address] Allergies No known active allergiesdocumented as of [...] mRNA, LNP-s, No Pre serve, 2-Dose Series ([employer]) 06/15/2021 COVID-19, MRNA-LNP, PF, 30 M CG/0.3 mL, 12 YRS AND ABOVE, IM ([facility]) 07/08/2023 Covid-19, Mrna, Lnp-s, Pf, B ivalent, 30 Mcg, IM, 12 yrs and above ([employer]) 05/08/2022 Seasonal Influenza Vac., MDV , IM, [...] Industry Job Start Date Job End Date 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 [...] Telephone Encounter - Clarisa Quiles LPN - 09/22/2024 8:41 AM EST left message for patient to call office Sent MyG and letter * Telephone Encounter - Clarisa Quiles LPN [...] [address] [address] German Urbano Jr., MD [address] [address] 10/31/2024 8:30 AM EDT Laboratory Laboratory, [place] [address] [phone] Jaspreet [address] [address] 12/07/2024 9:20 AM EDT Office Visit [facility] [place] [address] [phone] Mariusz Montiel PA-C [address] [phone] Scheduled Orders Name Type Priority Associated Diagnoses [...] this encounter Medical Devices Implanted Type Area Automation Controls Engineer Device Identifier Shelf Expiration Date Model / Serial / Lot [place] Volar Plate 9h Right Implanted:Qty : 1 on 06/22/2015 by Gurwinder Funez Jr., MD at [place] [facility] Right: Wrist SYNTHES 02.110.009 S / / Description:Implant from set . Screw Selftap 3.5x18 204.818 - [id number] Implanted:Qty : 5 on 06/22/2015 by Gurwinder Funez Jr., MD at OR [facility] Right: Wrist SYNTHES 204.818 / / Screw Locking Va 24mm - [id number] Implanted:Qty : 2 on 06/22/2015 by Gurwinder Funez Jr., MD at OR [facility] Right: Wrist SYNTHES 210.124 / / Scrw Lkg 2.4mm Va 22mm - [id number] Implanted:Qty : 2 on 06/22/2015 by Gurwinder Funez Jr., MD at OR [facility] Right: Wrist SYNTHES 210.122 / / Screw Selftap 3.5x16 204.816 - [id number] Implanted:Qty : 1 on 06/22/2015 by Gurwinder Funez Jr., MD at OR [facility] Right: Wrist SYNTHES 204.816 / / Dbx 2.5cc [id number] - [id number] - [id number] Implanted:Qty : 1 on 06/22/2015 by Gurwinder Funez Jr., MD at OR [facility] Right: Wrist MUSCULOSKELETAL TRANSPLANT FND 09/21/2016 [id number] / [id number] / Mesh Flat Sheet 10x14 [id number] - [id number] Implanted:Qty : 1 on 11/25/2016 by Sarmad Sierra DO at OR [facility] N/A: Abdomen CR BARD : DAVOL 07/14/2021 [id number] / / [id number] Bard Soft Mesh Implanted:Qty : 1 on 11/03/2017 by Layne Ernst MD at OR [facility] N/A: Abdomen 08/16/2022 [id number] / [id number] / [id number] documented as of this encounter Visit Diagnoses [...] Directives occurred with: Not Discussed Care Teams Debt Management Counselor Relationship Specialty Start Date End Date Tita Worley PA-C [address] [address] [place] [address] PCP - General Physician Broiler Supervisor 10/13/19 documented as of this encounter
--- OUTSIDE RECORDS SUMMARY | 2024-09-28 16:40 | External Medical Summary ---
Author Name Unknown Address Unknown Organization K01:[facility] [place] [address] [place] [address] Laboratory Report Ordering Provider Test Date Status ME ANDREIHRA 09/22/2024 10:45:14 Final Laboratory testing ordered.< br/>
Approve this testing send to [facility]
This non-formulary test request was reviewed by Trae Humphrey MD

The pt can now be collected Observation Date Value Abnormality Reference (Units) Status REQUEST ACCEPTED/REJECTED 09/22/2024 10:45:14 Accepted Final PERFORMING LAB 09/22/2024 10:45:14 [facility] Final TEST CODE 09/22/2024 10:45:14 1629 Final TEST DESCRIPTION 09/22/2024 10:45:14 alpha galactosidase Final Performing Location [facility] [place] [address] [place] [address]
--- OUTSIDE RECORDS SUMMARY | 2024-09-28 16:40 | External Medical Summary | Summary of Care ---
Author Name Unknown Organization [facility] Address [address] [facility] [place] [address] Phone [phone] Care Team Providers Care Ux Ui Designer Name Role Phone Tita Worley PA-C Primary Care Provider +1- [phone] Encounter Details Date Type Department Care Team (Late st Contact Info) Description 09/20/2024 Telephone Endocrinology [facility] [place] [address] [place] [address] [place] [address] Nikos Arana MD [address] [place] [address] [place] [address] Allergies No known active allergiesdocumented as of this encounter (statuses as of 09/21/2024) Medications SURGICAL COMPRESSION STOCKING 20 to 30mm [...] as of this encounter (statuses as of 09/21/2024) Active Problems Problem Noted Date Diagnosed Date Hypertrophic non-obstructive cardiomyopathy 08/19 LVH (left ventricular hypertrophy) 04/28/2018 Incisional hernia, without obstruction or gangre ne 11/26/2016 Vitamin D insufficiency 10/01/2015 BPH (benign prostatic hyperplasia) 09/12/2015 Diverticulosis of large intestine without hemorr imelda 09/12/2015 Obstructive sleep apnea of adult 09/12/2015 documented as of this encounter (statuses as of 09/21/2024) Resolved Problems Problem Noted Date Diagnosed Date [...] as of this encounter (statuses as of 09/21/2024) Immunizations Name Administration Dates Next Due COVID-19 mRNA, LNP-s, No Pre serve, 2-Dose Series ([employer]) 06/15/2021 COVID-19, MRNA-LNP, PF, 30 M CG/0.3 mL, 12 YRS AND ABOVE, IM ([facility]) 07/08/2023 Covid-19, Mrna, Lnp-s, Pf, B ivalent, 30 Mcg, IM, 12 yrs and above ([employer]) 05/08/2022 Seasonal Influenza Vac., MDV , IM, [...] Industry Job Start Date Job End Date 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 on file Not on f ile [...] 09/27/2024 3:45 PM EST Office Visit Urology [place] [address] [place] [id number] German Urbano Jr., MD [address] [place] [address] 10/31/2024 8:30 AM EDT Laboratory Laboratory, [place] [address] [place] [phone] [facility] [address] [facility] [place] [address] 12/07/2024 9:20 AM EDT Office Visit [facility] [address] [place] [phone] Mariusz Montiel PA-C [address] [facility] [place] [address] Scheduled Orders Name Type Priority Associated Diagnoses [...] this encounter Medical Devices Implanted Type Area Animal Doctor Device Identifier Shelf Expiration Date Model / Serial / Lot [place] Volar Plate 9h Right Implanted:Qty : 1 on 06/22/2015 by Gurwinder Funez Jr., MD at [place] [facility] Right: Wrist SYNTHES 02.110.009 S / / Description:Implant from set . Screw Selftap 3.5x18 204.818 - [id number] Implanted:Qty : 5 on 06/22/2015 by Gurwinder Funez Jr., MD at OR [facility] Right: Wrist SYNTHES 204.818 / / Screw Locking Va 24mm - [id number] Implanted:Qty : 2 on 06/22/2015 by Gurwinder Funez Jr., MD at OR [facility] Right: Wrist SYNTHES .124 / / Scrw Lkg 2.4mm Va 22mm - [id number] Implanted:Qty : 2 on 06/22/2015 by Gurwinder Funez Jr., MD at OR [facility] Right: Wrist SYNTHES .122 / / Screw Selftap 3.5x16 204.816 - [id number] Implanted:Qty : 1 on 06/22/2015 by Gurwinder Funez Jr., MD at OR [facility] Right: Wrist SYNTHES 204.816 / / Dbx 2.5cc [id number] - [id number] - [id number] Implanted:Qty : 1 on 06/22/2015 by Gurwinder Funez Jr., MD at OR [facility] Right: Wrist MUSCULOSKELETAL TRANSPLANT FND 09/21/2016 [id number] / [id number] / Mesh Flat Sheet 10x14 [id number] - [id number] Implanted:Qty : 1 on 11/25/2016 by Sarmad Sierra DO at OR [facility] N/A: Abdomen CR BARD : DAVOL 07/14/2021 [id number] / / [id number] Soft Mesh Implanted:Qty : 1 on 11/03/2017 by Layne Ernst MD at OR [facility] N/A: Abdomen 08/16/2022 [id number] / [id number] / [id number] documented as of this encounter Visit Diagnoses [...] Directives occurred with: Not Discussed Care Teams Ux Ui Designer Relationship Specialty Start Date End Date Tita Worley PA-C [address] [facility] [address] [facility] [place] [address] PCP - General Physician Tax Economist 10/13/19 documented as of this encounter
--- OUTSIDE RECORDS SUMMARY | 2024-09-28 16:40 | External Medical Summary | Summary of Care ---
Author Name Unknown Organization [facility] Address [address] [place] [facility] [place] [place] [address] Phone [phone] Care Team Providers Care Single Needle Tufting Machine Operator Name Role Phone Tita Worley PA-C Primary Care Provider +1- [phone] Reason for Visit * Reason Comments Follow Up Pre-op Clearance Encounter Details Date Type Department Care Team (Latest Contact Info) Description 09/19/2024 12:45 PM EST Office Visit Cardiology, [place] [address] [place] [address] Jimena Joseph PA-C [address] [place] [address] Preoperative cardiovascular examination*; Dyslipidemia, goal LDL below 70; Hyperlipemia, mixed; Hypertrophic non-obstructive cardiomyopathy (HCC) Allergies No known active allergiesdocumented as [...] mRNA, LNP-s, No Pre serve, 2-Dose Series (trippiece) 06/15/2021 COVID-19, MRNA-LNP, PF, 30 M CG/0.3 mL, 12 YRS AND ABOVE, IM ([facility]) 07/08/2023 Covid-19, Mrna, Lnp-s, [...] Industry 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 on file documented as of this encounter Last Filed Vital Signs Vital Sign Reading Time Taken Comments Blood Pressure 128/64 09/19/2024 12:00 PM EST Pulse 80 09/19/2024 12:00 PM EST Temperature - - Respiratory Rate - - Oxygen Saturation 95% 09/19/2024 12:00 PM EST Inhaled Oxygen Concentration - - Weight 112.9 kg (249 lb) 09/19/2024 12:00 PM EST Height 185.4 cm (6' 1") 09/19/2024 12:00 PM EST Body Mass Index 32.85 09/19/2024 12:00 PM EST documented in this encounter Functional Status * Are you [...] Shama Uribe RN documented in this encounter Progress Notes * Jimena Joseph PA-C - 09/19/2024 7:45 AM EST HPI suspected hypertrophic cardiomyopathy VUS in LAMA4 and RYR2) Pt is here for preoperative CV evaluation for right shoulder Replacement 09/28/24 at [facility] He has been seen by Dr. Hoffman for HCM " Cardiomyopathy likely ischemic (old infarct in IL segment) with likely compensatory septal hypertrophy (has VUS in LAMA4 and RYR2), true HCM is unlikely." Cardiac CT was ordered by Dr. Alcantara revealing minimal CAD He is an avid anmol.not able to cock his bow or gun with his shoulder pain. Did some walking in the [place] to track a deer this winter, no CP or PETERSON He is able to walk up a flight of stairs slowly with his ankle pain. The patient denies any chest pain chest pressure, jaw or neck pain, arm pains or interscapular pain. The patient denies any SOB, PETERSON, orthopnea, PND, + chronic right ankle edema. Denies any palpitations, dizziness, near syncope or syncope. He is seeing endocroinology for hyperparathyroidism elevated calcium 09/01/[address] Findings are consistent with CAD-RADS category 1 (minimal CAD with 1% - 24% stenosis), The Agatston calcium score is 13. The exam quality is good (mild artifacts are present). The patients age and sex matched coronary calcium content is 32 % (CARUSO). 06/03/24 CARDIAC MRI 1. Cardiac MRI findings of severe, asymmetric hypertrophy of the basal and mid septum with near transmural infarction of the basal and mid inferolateral segments. There is atypical midwall enhancement in the basal and mid septum. Overall, the asymmetric hypertrophy of the septum is likely compensatory hypertrophy but in light of atypical mid wall septal enhancement a superadded cardiomyopathic process cannot be excluded (especially in light of known positive variants in LAMA4). Furthermore, evaluation of coronary arteries may be considered. 2. The left ventricle is of normal size with severe septal asymmetric hypertrophy. Left ventricle systolic function is normal. There is akinesis of the basal to mid inferolateral segment.The calculated LV ejection fraction is 66%. 3. The right ventricle is of normal size and systolic function.The calculated RV ejection fraction is 56%. 4. Myocardial infarction is noted as described above. 06/27/24 Stress echo Exercise Stress TTE: Non-diagnostic for ischemia due to failure to reach >85% of max predicted HR. The qualitative LV ejection fraction is 60-64% (normal). There is a small sized basal posterior and lateral wall motion abnormality with akinesis of the segments. Mid-Cavitary Peak Gradient with exercise is approximately 23 mmHg. LVOT Peak Gradient with exercise is approximately 12 mmHg. 11/25/18 stress echo Inadequate cardiovascular stress test as patient obtained 71 percent of their age predicted maximaltarget heart rate. Patient exercised for 3:08 minutes of the Miko protocol with a functional capacity of 4.4 Mets. No significant arrhythmias were noted. Normal blood pressure and heart rate response to exercise. Patient denied chest discomfort reporting only ankle pain and fatigue at peak exercise. The examination is adequate to evaluate the referral indication. The primary indication after review was deemed appropriate and the examination was performed. IV insertion attempted X5 without success. Left Ventricular Calculated LV ejection Fraction = 65% (bi-plane method of discs). The left ventricular cavity size is normal. The asymmetric hypertrophy also involves the septum. There is isolated basal septal hypertrophy with maximal thickness of 1.8 cm. There is inducible dynamic left ventricular outflow tract obstruction. The resting peak instantaneous left ventricular outflow tract gradient is 8 mm Hg. The inducible peak instantaneous left ventricular outflow tract gradient is 75 mm Hg. There is no left ventricular mural thrombus. No Fam hx sudden No sycope Past Medical History: Diagnosis Date Diverticulosis of large intestine without hemorrhage 09/12/2015 DVT (deep venous thrombosis) ([facility]) 07/03/2015 Related to trauma, hematology work up negative. Hypertrophic cardiomyopathy (HCC) Left ventricular outflow tract obstruction LVH (left ventricular hypertrophy) 04/28/2018 Obstructive sleep apnea of adult 09/12/2015 CPAP Preoperative cardiovascular examination 04/28/2018 Pulmonary embolism ([facility]) 06/26/2015 Trauma related, hematology work up negative. Past Surgical History: Procedure Laterality Date BX LYMPH NODE-SUPERFIC Left 06/25/2015 BIOPSY LYMPH NODE OPEN SUPERFICIAL performed by Nasra Brewster MD at [facility] COLONOSCOPY 10/26/2008 RADIUS AND ULNA FX W/FIXATION Right 06/22/2015 OPEN TREATMENT OF RADIUS AND ULNA performed by Gurwinder Funez Jr., [place] [facility] REMOVE TONSILS & ADENOIDS, UNDER 12 As a child REPAIR ARM TENDON/MUSCLE Left 2011 Dr. Coyne REPAIR INITIAL INCISIONAL HERNIA N/A 11/25/2016 REPAIR INITIAL INCISIONAL HERNIA STRANGULATED performed by Sarmad Sierra DO at OR [facility] REPAIR INITIAL INGUINAL HERNIA REDUCIBLE AGE 5 OR MORE Right [address] Dr[address] Sierra REPAIR RECURRENT INCISIONAL HERNIA N/A 11/03/2017 REPAIR RECURRENT INCISIONAL HERNIA REDUCIBLE performed by Layne Ernst MD at [place] [facility] SACROILIAC JOINT INJECT W/GUIDANCE Left 03/17/2024 INJECTION SACROILIAC JOINT performed by Damaso Morrison DO at OR [facility] Social History Tobacco Use Smoking status: Never Passive exposure: Yes Smokeless tobacco: Never Vaping Use Vaping status: Never Used Substance Use Topics Alcohol use: Yes Alcohol/week: 3.0 standard drinks of alcohol Types: 3 12 oz of beer per week Comment: 1-2 beers infrequently Drug use: No Family History Problem Relation Name Age of Onset Other (PAD) Mother smoker Abdominal Aortic Aneurysm Mother Cancer Father lymphoma Blood Disorder Sister Factor 5 Other (Other) Sister No History Skin disease Review of patient's allergies indicates: No Known Allergies Current Outpatient Medications Medication Sig Dispense Refill [...] 1 Tablet by mouth in the morning. No current facility-administered medications for this visit. ROS: General: No chills, fever, sweats or change in energy. HEENT: Denies rhinorhea, congestion. Denies amaurosis fugax. Denies difficulty swallowing or speaking. Cardiac: See HPI. Pulmonary: See HPI; denies hemoptysis or cough. GI No melena or hematochezia. : Denies hematuria PHYSICAL EXAMINATION: BP 128/64 (BP Site: Left Arm, BP Position: Sitting, BP Cuff Size: Regular) | Pulse 80 | Ht 1.854 m (6' 1") | Wt 112.9 kg (249 lb) | SpO2 95% | BMI 32.85 kg/m | BSA 2.41 m Gen: Pt is a 63 year old male NAD alert oriented X 3 Neck: No JVD or HJR. Carotid: normal upstoke. There are no bruits. CARDIO: The rhythm is regular. S1 and S2 are normal. There is no S3 or S4. There is a 1/6 systolic murmur at the LSB. No clicks or rubs heard. LUNGS: The lungs are clear to auscultation and percussion. Pulses: Radials: normal. Edema: none. IMPRESSION/ PLAN: I reviewed the patient's history physical and prior cardiac testing, including EKG, in depth with Dr. Marcus Hypertrophic cardiomyopathy with LVOT gradient on stress echo 2019 - continue verapamil 240 mg daily Preoperative CV evaluation for Right shoulder - Patient's cardiac condition is stable and functional status is good. In the abscence of a clinical cardiac indications for mechanical revascularization, independent of the need for surgery, mechanical revascularizaiton does not change the risk for non cardiac surgery.There is no clinical cardiac indication for mechanical revascularization at this time. He is capable of greater than 4 Mets exertion without symptoms his EKG is unchanged from EKG of 10/18/2019. He has a higher risk with his history of hypertrophic cardiomyopathy and his LVOT gradient thus hypotension, large fluid shifts and dehydration should be avoided. I had a long discussion with the patient regarding risk of CV events his current lack of symptoms and normal Cardiac CT I explained that there is no way to reduce risk to 0 patient understands that and prefers to proceed with scheduled shoulder surgery. CAD minimal on cardiac CT Suggest statin. Pleiotropic effects of statins including improvement of endothelial dysfunction, increased nitric oxide bioavailability, antioxidant properties, inhibition of inflammatory responses, and stabilization of atherosclerotic plaques were discussed. Discussed potential side effects. Start rosuvastatin 20 mg daily Labs in 6 weeks. ARTHUR on CPAP Pt understands if they develop chest pain or shortness of breath that lasts more than 15 minutes (or through 3 NTG ) or syncope they are to call EMS and be taken to the ER, I do not suggest they drive themselves. .1sym I discussed with the patient at length the symptoms that should be reported, including chest pain, shortness of breath, increasing dyspnea on exertion, increasing palpitations, near syncope or syncope. The patient voices an understanding. RTC with provider in [place] ( at his request) in 6 months or sooner prn I spent a total of 40-54 minutes (exact time 45 mins) on the date of service in preparation, delivery, and documentation of the care provided to Sarmad Victor excluding any time spent in the performance of separately billed services or time spent by another provider/QHP. Jimena Joseph PA-C [facility] Cardiology [place] [address] [place] [id number] cc:Tita Worley PA-C Note: I used my previous office note as a template to review, update and build this note Cc: [facility] Floyd documented in this encounter Plan of Treatment Upcoming Encounters Date Type Department Care Team (Late st Contact Info) Description 09/27/2024 3:45 PM EST Office Visit Urology [place] [address] [place] [address] Germna Urbano Jr., MD [address] [place] [address] 10/31/2024 8:30 AM EDT Laboratory Laboratory, [place] [address] [place] [phone] [facility] [address] [place] [address] 12/07/2024 9:20 AM EDT Office Visit [facility] [place] [address] [place] [phone] Mariusz Montiel PA-C [address] [place] [address] Scheduled Orders Name Type Priority Associated Diagnoses Orde r Schedule LIPID PANEL WITH DIRECT LDL IF TG IS HIGH Lab Routine Dyslipidemia, goal LDL below 70 Expected: 11/03/2024, Expires: 09/19/2025 COMPREHENSIVE METABOLIC PANEL Lab Routine Dyslipidemia, goal LDL below 70 Expected: 11/03/2024, Expires: 09/19/2025 Health Maintenance Due Date Last Done Comments [...] this encounter Medical Devices Implanted Type Area Steamer Operator Device Identifier Shelf Expiration Date Model / Serial / Lot Mary [place] Volar Plate 9h Right Implanted:Qty : 1 on 06/22/2015 by Gurwinder Funez Jr., [place] [facility] Right: Wrist SYNTHES 02.110.009 S / / Description:Implant from set . Screw Selftap 3.5x18 204.818 - [id number] Implanted:Qty : 5 on 06/22/2015 by Gurwinder Funez Jr., MD [place] [facility] Right: Wrist SYNTHES 204.818 / / Screw Locking Va 24mm - [id number] Implanted:Qty : 2 on 06/22/2015 by Gurwinder Funez Jr., MD at [place] [facility] Right: Wrist SYNTHES 210.124 / / Scrw Lkg 2.4mm Va 22mm - [id number] Implanted:Qty : 2 on 06/22/2015 by Gurwinder Funez Jr., MD [place] [facility] Right: Wrist SYNTHES 210.122 / / Screw Selftap 3.5x16 204.816 - [id number] Implanted:Qty : 1 on 06/22/2015 by Gurwinder Funez Jr., [place] [facility] Right: Wrist SYNTHES 204.816 / / Dbx 2.5cc [id number] - [id number] - [id number] Implanted:Qty : 1 on 06/22/2015 by Gurwinder Funez Jr., [place] [facility] Right: Wrist MUSCULOSKELETAL TRANSPLANT FND 09/21/2016 [id number] / [id number] / Mesh Flat Sheet 10x14 [id number] - [id number] Implanted:Qty : 1 on 11/25/2016 by Sarmad Sierra DO at OR [facility] N/A: Abdomen CR BARD : DAVOL 07/14/2021 [id number] / / [id number] Bard Soft Mesh Implanted:Qty : 1 on 11/03/2017 by Layne Ernst MD [place] [facility] N/A: Abdomen 08/16/2022 [id number] / [id number] / [id number] documented as of this encounter Visit Diagnoses Diagnosis Preoperative cardiovascular examination- Primary Pre-operative cardiovascular examination Dyslipidemia, goal LDL below 70 Other and unspecified hyperlipidemia Hyperlipemia, mixed Mixed hyperlipidemia Hypertrophic non-obstructive cardiomyopathy (HCC) Other hypertrophic cardiomyopathy documented in this encounter Advance Directives * [...] Directives occurred with: Not Discussed Care Teams Single Needle Tufting Machine Operator Relationship Specialty Start Date End Date Tita Worley PA-C [address] [facility] [address] [place] [address] PCP - General Physician Intake Man 10/13/19 documented as of this encounter
--- OUTSIDE RECORDS SUMMARY | 2024-09-28 16:40 | External Medical Summary | Summary of Care ---
Author Name Unknown Organization [facility] Address [address] [place] [address] Phone [phone] Care Team Providers Care Broker Associate Name Role Phone GaurangTita ruiz Richard CARPENTERC Primary Care Provider +1- [phone] Reason for Referral * Precert (Within 10 days (routine)) - Pending Review Specialty Diagnoses / Procedures Referred By Contac t Referred To Contact Radiology Diagnoses LVH (left ventricular hypertrophy) Procedures PET CT MYOCARDIAL METABOLIC FUNCTION Selvin Hoffman MD [address] [place] [address] Phone: tel: fax: Referral ID Status Reason Start Date Expiration Date V isits Requested Visits Authorized [id number] Pending Review 09/23/[phone] * Precert (Within 10 days (routine)) - Pending Review Specialty Diagnoses / Procedures Referred By Contac t Referred To Contact Radiology Diagnoses LVH (left ventricular hypertrophy) Procedures NM MYOCARDIAL PERFUSION SPECT SINGLE REST OR STRESS Selvin Hoffman MD [address] [place] [address] Phone: tel: fax: Referral ID Status Reason Start Date Expiration Date Visits Requested Visits Authorized [id number] Pending Review Precert 09/23/[phone] Encounter Details Date Type Department Care Team (Late st Contact Info) Description 09/22/2024 10:30 AM EST Telemedicine Cardiology [facility] [address] [place] [address] Selvin Hoffman MD [address] [place] [address] LVH (left ventricular hypertrophy)*; Hypercalcemia; 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 He [...] PE, Factor V Leiden Grandfather 67 years [place] Father: 76 years, lung cancer and lymphoma, [...] performed by Nasra Brewster MD at [place] [facility] COLONOSCOPY 10/26/2008 RADIUS AND ULNA FX W/FIXATION Right 06/22/2015 OPEN TREATMENT OF RADIUS AND ULNA performed by Gurwinder Funez Jr., MD at [facility] REMOVE TONSILS & ADENOIDS, UNDER 12 As a child REPAIR ARM TENDON/MUSCLE Left 2011 Dr. Coyne REPAIR INITIAL INCISIONAL HERNIA N/A 11/25/2016 REPAIR INITIAL INCISIONAL HERNIA STRANGULATED performed by Sarmad Sierra DO at OR [facility] REPAIR INITIAL INGUINAL HERNIA REDUCIBLE AGE 5 OR MORE Right [address] Sierra REPAIR RECURRENT INCISIONAL HERNIA N/A 11/03/2017 REPAIR RECURRENT INCISIONAL HERNIA REDUCIBLE performed by Layne Ernst MD at [facility] SACROILIAC JOINT INJECT W/GUIDANCE Left 03/17/2024 INJECTION SACROILIAC JOINT performed by Damaso Morrison DO at OR [facility] Social History Tobacco Use Smoking status: Never Passive exposure: Yes Smokeless tobacco: Never Vaping Use Vaping status: Never Used Substance Use Topics Alcohol use: Yes Alcohol/week: 3.0 standard drinks of alcohol Types: 3 12 oz of beer per week Comment: 1-2 beers infrequently Drug use: No 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 ROS: Constitutional: No change in [...] NUNU Other Findings 06/03/24 1.9cm Basal sept [place] in thinned basal and mid [place] 66 [...] Tita Worley PA-C documented in this encounter Plan of Treatment Upcoming Encounters Date Type Department Care Team (Late st Contact Info) Description 09/27/2024 3:45 PM EST Office [facility] [address] [place] [address] German Urbano Jr., MD [address] [place] [address] 10/31/2024 8:30 AM EDT Laboratory Laboratory, [place] [address] [facility] [place] [phone] [place], Lab [address] [facility] Wenceslao [place] [id number] 12/07/2024 9:20 AM EDT Office [facility] [place] [address] [phone] Mariusz Montiel PA-C [address] [facility] [place] [place] [id number] Pending Results Name Type Priority Associated Diagnoses Date /Time NON-FORMULARY TEST REQUEST Lab Routine LVH (left ventricular hypertrophy) 09/22/2024 10:45 AM EST Scheduled Orders Name Type Priority Associated Diagnoses Orde r Schedule NM MYOCARDIAL PERFUSION SPECT SINGLE REST OR STRESS Cardiology Routine LVH (left ventricular hypertrophy) Expected: 09/23/2024, Expires: 10/20/[address] MYOCARDIAL METABOLIC FUNCTION Medical Imaging Routine LVH (left ventricular hypertrophy) Expected: 09/23/2024, Expires: 10/20/2025 Health Maintenance Due Date Last Done Comments [...] this encounter Medical Devices Implanted Type Area Shafting Worker Device Identifier Shelf Expiration Date Model / Serial / Lot Mary [place] Volar Plate 9h Right Implanted:Qty : 1 on 06/22/2015 by Gurwinder Funez Jr., MD at [place] [facility] Right: Wrist SYNTHES 02.110.009 S / / Description:Implant from set . Screw Selftap 3.5x18 204.818 - [id number] Implanted:Qty : 5 on 06/22/2015 by Gurwinder Funez Jr., MD at [facility] Right: Wrist SYNTHES 204.818 / / Screw Locking Va 24mm - [id number] Implanted:Qty : 2 on 06/22/2015 by Gurwinder Funez Jr., MD at [facility] Right: Wrist SYNTHES 210.124 / / Scrw Lkg 2.4mm Va 22mm - [id number] Implanted:Qty : 2 on 06/22/2015 by Gurwinder Funez Jr., MD at [facility] Right: Wrist SYNTHES .122 / / Screw Selftap 3.5x16 204.816 - [id number] Implanted:Qty : 1 on 06/22/2015 by Gurwinder Funez Jr., MD at [facility] Right: Wrist SYNTHES 204.816 / / Dbx 2.5cc [id number] - [id number] - [id number] Implanted:Qty : 1 on 06/22/2015 by Gurwinder Funez Jr., MD at [place] [facility] Right: Wrist MUSCULOSKELETAL TRANSPLANT FND 09/21/2016 [id number] / [id number] / Mesh Flat Sheet 10x14 [id number] - [id number] Implanted:Qty : 1 on 11/25/2016 by Sarmad Sierra DO at OR [facility] N/A: Abdomen CR BARD : DAVOL 07/14/2021 [id number] / / [id number] Bard Soft Mesh Implanted:Qty : 1 on 11/03/2017 by Layne Ernst MD at [facility] N/A: Abdomen 08/16/2022 [id number] / [id number] / [id number] documented as of this encounter Visit Diagnoses Diagnosis LVH (left ventricular hypertrophy)- Primary Cardiomegaly Hypercalcemia 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
--- OUTSIDE RECORDS SUMMARY | 2024-09-28 16:40 | External Medical Summary | Summary of Care ---
Author Name Unknown Organization [facility] Address [address] [facility] [place] [address] Phone [phone] Care Team Providers Care Maritime Pilot Name Role Phone Tita Worley PA-C Primary Care Provider +1- [phone] Encounter Details Date Type Department Care Team (Late st Contact Info) Description 09/20/2024 Telephone Endocrinology [facility] [place] [address] [place] [address] [place] [phone] Nikos Arana MD [address] [place] [address] [place] [address] Allergies No known active allergiesdocumented as of [...] mRNA, LNP-s, No Pre serve, 2-Dose Series (Applico) 06/15/2021 COVID-19, MRNA-LNP, PF, 30 M CG/0.3 mL, 12 YRS AND ABOVE, IM (Biolase-[facility]) 07/08/2023 Covid-19, Mrna, Lnp-s, Pf, B ivalent, 30 Mcg, IM, 12 yrs and above (Applico) 05/08/2022 Seasonal Influenza Vac., MDV , IM, [...] 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 [...] Visit [facility] [place] [facility] [address] [facility] [address] [phone] German Urbano Jr., MD [address] [place] [address] 10/31/2024 8:30 AM EDT Laboratory Laboratory, [place] [address] [place] [phone] Jaspreet [place] [address] [place] [address] 12/07/2024 9:20 AM EDT [facility] [address] [place] [phone] Mariusz Montiel PA-C [address] [address] Scheduled Orders Name Type Priority Associated Diagnoses [...] this encounter Medical Devices Implanted Type Area Delinquency Prevention Social Worker Device Identifier Shelf Expiration Date Model / Serial / Lot Mary [place] Volar Plate 9h Right Implanted:Qty : 1 on 06/22/2015 by Gurwinder Funez Jr., MD at [place] [facility] [place] [place] Right: Wrist SYNTHES 02.110.009 S / / Description:Implant from set . Screw Selftap 3.5x18 204.818 - [id number] Implanted:Qty : 5 on 06/22/2015 by Gurwinder Funez Jr., MD at [place] [facility] [place] [place] Right: Wrist SYNTHES 204.818 / / Screw Locking Va 24mm - [id number] Implanted:Qty : 2 on 06/22/2015 by Gurwinder Funez Jr., MD at [facility] Right: Wrist SYNTHES 210.124 / / Scrw Lkg 2.4mm Va 22mm - [id number] Implanted:Qty : 2 on 06/22/2015 by Gurwinder Funez Jr., MD at [facility] Right: Wrist SYNTHES 210.122 / / Screw Selftap 3.5x16 204.816 - [id number] Implanted:Qty : 1 on 06/22/2015 by Gurwinder Funez Jr., MD at [facility] [place] Right: Wrist SYNTHES 204.816 / / Dbx 2.5cc [id number] - [id number] - [id number] Implanted:Qty : 1 on 06/22/2015 by Gurwinder Funez Jr., MD at [place] [facility] [place] Right: Wrist MUSCULOSKELETAL TRANSPLANT FND 09/21/2016 [id number] / [id number] / Mesh Flat Sheet 10x14 [id number] - [id number] Implanted:Qty : 1 on 11/25/2016 by Sarmad Sierra DO at OR [facility] N/A: Abdomen CR BARD : DAVOL 07/14/2021 [id number] / / [id number] Bard Soft Mesh Implanted:Qty : 1 on 11/03/2017 by Layne Ernst MD at OR [facility] [place] N/A: Abdomen 08/16/2022 [id number] / [id number] / [id number] documented as of this encounter Visit Diagnoses [...] Directives occurred with: Not Discussed Care Teams Maritime Pilot Relationship Specialty Start Date End Date Tita Worley PA-C [address] [facility] [place] [address] PCP - General Physician Multiple Tube Winding Machine Operator 10/13/19 documented as of this encounter
--- NOTE | 2024-09-28 17:30 | Anesthesiology Progress Note ---
Date of Service September 28, 2024 Anesthesia Post Procedure Vital Signs Vital Signs: Temp Pulse Resp BP Pulse Ox O2 Del Method O2 Flow Rate 09/28/24 17:20 82 20 123/79 93 Room Air 09/28/24 17:05 79 20 122/77 92 Room Air 0 09/28/24 16:55 36.5 C 79 18 124/82 93 Room Air 0 09/28/24 16:45 76 20 118/72 95 Oxymask 4 09/28/24 16:35 75 16 118/65 96 Oxymask 8 09/28/24 16:25 36.0 C L 79 20 116/66 98 Oxymask 8 09/28/24 11:08 36.8 C 73 20 122/80 98 Room Air Transfer of Care Handoff Completed per policy Notes Mental Status: alert / awake / arousable and participated in evaluation Patient Amnestic to Procedure: Yes Nausea / Vomiting: adequately controlled Pain: adequately controlled Airway Patency, RR, SpO2: stable & adequate BP & HR: stable & adequate Hydration State: stable & adequate Anesthetic Complications: no major complications apparent and Pt Satisfied with anesthetic care
--- NOTE | 2024-09-28 17:34 | XRay Report ---
EXAM: XR shoulder RT min 2V routine CLINICAL HISTORY: Post shoulder surgery. TECHNIQUE: X-ray images of the right shoulder were obtained in anteroposterior (AP) external and internal rotation, and Y-view projections. COMPARISON: No prior studies available for comparison. FINDINGS: Status post reverse shoulder arthroplasty with normal alignment of the prothesis. No evidence of loosening or infection. Distal acromial process resection. The remaining bones are intact. Surgical sutures are seen. No soft tissue abnormality. IMPRESSION: 1. Status post reverse shoulder arthroplasty with normal alignment of the prosthesis. No evidence of loosening or infection. 2. No significant abnormality. Disclaimer: A subtle bone abnormality or fracture may not be readily apparent on X-rays, thus clinical correlation and further imaging including follow-up CT, MRI, or follow-up X-rays are advised as needed. Electronically signed by Darrell Vuong 09-28-2024 5:34 PM
[2024-09-28] MEDS ORDERED: MAGNESIUM HYDROXIDE SUSP 30 ML UDC PO PRN (18:10)
[2024-09-28] MEDS ORDERED: METOCLOPRAMIDE HCL INJ 5 MG/ML 2 ML VIAL IV PRN (18:10)
[2024-09-28] MEDS ORDERED: metroNIDAZOLE 0.75% TOPICAL GEL 45 GM TUBE TOP PRN (18:10)
[2024-09-28] MEDS ORDERED: bisacodyL 10 MG SUPP PR PRN (18:10)
[2024-09-28] MEDS ORDERED: diphenhydrAMINE Capsule 25 MG CAP PO PRN (18:10)
[2024-09-28] MEDS ORDERED: oxyCODONE HCL IR 5 MG TAB (IMMEDIATE RELEASE) PO PRN (18:10)
[2024-09-28] MEDS ORDERED: NALOXONE HCL 0.4 MG/1 ML VIAL/CARP IV PRN (18:10)
[2024-09-28] MEDS ORDERED: HYDROmorphone INJ 0.5 MG/0.5 ML SYR IV PRN (18:10)
[2024-09-28] MEDS ORDERED: ALUMINUM/MAGNESIUM SUSP 30 ML UDC PO PRN (18:10)
[2024-09-28] MEDS: BUPIVACAINE LIPOSOME 1.3% 133 MG/10 ML VIAL ONE (18:11)
--- NOTE | 2024-09-28 18:57 | Consultation ---
Date of Consultation September 28, 2024 Assessment & Plan (1) Rotator cuff tear arthropathy of right shoulder: Patient is a 64-year-old male with history of hypertropic cardiomyopathy, LVH, BPH, obstructive sleep apnea, diverticulosis, vitamin D deficiency, etc. presenting with right shoulder arthroplasty. Rotator cuff arthropathy, right Status post reverse total shoulder arthroplasty Patient is stable overall after surgery Check CBC and PRP tomorrow Pain control PT OT eval DVT prophylaxis per Ortho Hypertrophic nonobstructive cardiomyopathy LVH Patient appears to be euvolemic No cardiac symptoms Continue usual verapamil, aspirin-currently increased to twice a day by Ortho service BPH Continue with dutasteride-tamsulosin Obstructive sleep apnea Patient not tolerating CPAP Other chronic medical conditions: Diverticulosis Vitamin D deficiency Thank you for this consultation. We will follow along closely with you. Please contact any member of the [facility] hospitalist team if you need any assistance or questions. History of Present Illness Requesting Physician: Dr. Coyne Reason for Consultation: Postop medical management Attending Physician: Armaan Coyne MD History of Present Illness Patient is a 64-year-old male with history of hypertropic cardiomyopathy, LVH, BPH, obstructive sleep apnea, diverticulosis, vitamin D deficiency, etc. presenting with right shoulder arthroplasty. Patient has a history of rotator cuff arthropathy, with persisting pain despite repair of rotator cuff with balloon arthroplasty. Today, patient underwent a right shoulder reverse total arthroplasty. Patient seen in the medical floor. He is sitting up, having dinner, comfortable, not in distress. Has some pain over the right shoulder, no chest pain, shortness of breath, palpitations, dizziness, abdominal pain, nausea vomiting. He is reporting some right lower extremity twitching/jerking movements. Per , patient has a history of restless leg syndrome. Allergies Allergy/AdvReac Type Severity Reaction Status Date / Time No Known Allergies Allergy Verified 09/28/24 10:58 Home Medications Medication Instructions Recorded Confirmed Type cholecalciferol (vitamin D3) 125 125 mcg PO QAM 01/26/20 09/28/24 History mcg (5,000 unit) tablet (Vitamin D3) verapamil 240 mg tablet,extended 240 mg PO QAM 01/26/20 09/28/24 History release diclofenac sodium 75 mg 75 mg PO QAM 03/18/24 09/28/24 History tablet,delayed release dutasteride 0.5 mg-tamsulosin ER 1 cap PO QAM 03/18/24 09/28/24 History 0.4 mg capsule ext.release 24hr mphas gabapentin 100 mg tablet 100 mg PO QAM leg cramps 03/18/24 09/28/24 History potassium gluconate 550 mg tablet 0 meq PO QAM 03/18/24 09/28/24 History metronidazole 0.75 % topical gel 1 applic topical DAILY PRN rosacea 03/23/24 09/28/24 History aspirin 81 mg capsule 81 mg PO DAILY 09/21/24 09/28/24 History rosuvastatin 20 mg tablet (Crestor) 20 mg PO DAILY 09/21/24 09/28/24 History acetaminophen 500 mg tablet 1,000 mg (2 x 500 mg) PO Q8H #90 09/28/24 Rx (Tylenol Extra Strength) tabs aspirin 81 mg tablet,delayed 81 mg PO BID #60 tabs 09/28/24 Rx release cefadroxil 500 mg capsule 500 mg PO Q12H #28 caps 09/28/24 Rx celecoxib 200 mg capsule (Celebrex) 200 mg PO Q12H #60 caps 09/28/24 Rx oxycodone 5 mg tablet 5 mg PO Q4H PRN pain #20 tabs 09/28/24 Rx Patient History Medical History Osteoarthritis Acquired pes planovalgus of right foot Rosacea History of colon polyps SI (sacroiliac) joint inflammation SI joint Injection 03/2024 History of DVT (deep vein thrombosis) (2015) RLE, s/p trauma Enlarged prostate Restless leg syndrome History of diverticulitis (~2018) Hypertension Left ventricular outflow tract obstruction Dynamic HOCM Follows with Masha Matthew History of kidney stones (~2022) Sleep apnea Non-compliant with CPAP Surgical History History of arthroscopy of right shoulder History of rotator cuff surgery Left History of surgery on arm Right (hardware) H/O abdominal surgery (~2018) Hernia surgery-infection with MRSA- revision History of tonsillectomy History of tooth extraction History of ankle surgery right ankle fusion Hx of colonoscopy History of colon resection History of incisional hernia repair History of bursectomy left elbow Family History Other No significant family history Social History Smoking Status: Never smoker Second Hand Exposure: No; Do You Dip or Chew Tobacco: No; Tobacco Cessation Education Requested by Patient: No Hx Alcohol Use: Yes Alcohol type: beer and hard liquor Hx Substance Use: No Preferred Language: Bulgarian Communication Ability: Effective Technical Fellow Required: No Beliefs That Will Affect Care: None Current Living Situation: Spouse Other Information That Helps Us Care for You: No Feels Safe at Home: Yes Safety Concerns: Feels Safe At This Time Assistive Devices: Contacts Review of Systems Review of Systems: all noted and negative except for above Physical Exam Physical Exam: General- oriented x 3, not in distress, speaks in sentences with no effort or accessory muscle use Head- atraumatic Eyes- PERRL, EOMI, anicteric ENT- oropharynx clear Neck- supple, no JVD, no adenopathy, no thyromegaly; carotids +2/2, no bruits appreciated Lungs- clear to auscultation bilaterally, no rales/wheezes Heart- normal rate, regular rhythm; no murmur, no gallop, no rub appreciated Abdomen- normal bowel sounds, nondistended, soft, nontender, no masses or hepatosplenomegaly Extremities- no pretibial edema, no calf tenderness; peripheral pulses intact Right shoulder-heavy dressing in place Neuro- alert, oriented x 3; CN 2-12 grossly intact; motor 5/5 bilaterally;sensation 100% on all extremities; no other gross focal neurologic deficits Skin- warm & dry Results & Data Vital Signs (Past 12 Hours) Vital Signs Temp Pulse Pulse Resp BP Pulse Ox O2 Del Method 09/28/24 18:30 36.6 C 76 16 116/73 97 Room Air 09/28/24 18:00 36.4 C L 78 16 115/73 92 Room Air 09/28/24 17:35 36.6 C 80 20 119/77 94 Room Air 09/28/24 17:20 82 20 123/79 93 Room Air 09/28/24 17:05 79 20 122/77 92 Room Air 09/28/24 16:55 36.5 C 79 18 124/82 93 Room Air 09/28/24 16:45 76 20 118/72 95 Oxymask 09/28/24 16:35 75 16 118/65 96 Oxymask 09/28/24 16:25 36.0 C L 79 20 116/66 98 Oxymask 09/28/24 11:08 36.8 C 73 20 122/80 98 Room Air O2 Flow Rate 09/28/24 18:30 09/28/24 18:00 09/28/24 17:35 09/28/24 17:20 09/28/24 17:05 0 09/28/24 16:55 0 09/28/24 16:45 4 09/28/24 16:35 8 09/28/24 16:25 8 09/28/24 11:08 all noted and reviewed including below
[2024-09-28] MEDS: ASPIRIN 81 MG ECTAB PO SCH (20:11)
[2024-09-28] MEDS: SENNA 8.6 MG TAB PO SCH (20:12)
[2024-09-28] MEDS: DOCUSATE SODIUM 100 MG CAP PO SCH (20:12)
[2024-09-28] MEDS: TRANEXAMIC ACID / 0.7% NACL 1,000 MG/100 ML BAG IV SCH (22:05)
[2024-09-28] MEDS ORDERED: KETOROLAC TROMETHAMINE 15 MG/ML VIAL IV PRN (23:00)
[2024-09-29 06:36] LABS: Basophils # (auto) 0.02 K/uL (0.00-0.20); Basophils % (auto) 0.2 %; Hematocrit (blood only) 34.2 % (42.0-52.0); Hemoglobin 11.2 g/dl (14.0-18.0); Immature Granulocytes # (auto) 0.03 K/uL (0.01-0.20); Immature Granulocytes % (auto) 0.3 %; Lymphocytes # (auto) 1.37 K/uL (1.20-3.40); Lymphocytes % (auto) 15.9 %; Mean Corpuscular Hemoglobin 28.9 pg (25.0-34.0); Mean Corpuscular Hgb Conc 32.7 g/dL (32.0-36.0); Mean Corpuscular Volume 88.1 fL (80.0-100.0); Mean Platelet Volume 10.2 fL (9.4-12.4); Monocytes # (auto) 0.47 K/uL (0.11-0.59); Monocytes % (auto) 5.5 %; Neutrophils # (auto) 6.72 K/uL (1.40-6.50); Neutrophils % (auto) 78.1 %; Platelet Count 206 K/uL (130-400); RDW Coefficient of Variation 14.6 % (11.5-14.5); RDW Standard Deviation 47.1 fL (36.4-46.3); Red Blood Count 3.88 M/uL (4.70-6.10); White Blood Count 8.61 K/ul (4.8-10.8)
[2024-09-29 06:59] LABS: BUN Creatinine Ratio 20.7 (10-20); Calcium 9.8 mg/dl (8.6-10.3); Creatinine Clr Calc Pharmacy 119.1 ml/min; Potassium 4.4 mmol/L (3.5-5.1)
[2024-09-29 07:25] VITALS: BP 131/80; PULSE 73; RESP 16; TEMP 97.7; O2SAT 97
--- NOTE | 2024-09-29 07:44 | Orthopedic Progress Note ---
Date of Service September 29, 2024 Assessment & Plan (1) Rotator cuff tear arthropathy of right shoulder: Plan: Rotator cuff arthropathy right shoulder with pain and weakness despite partial repair rotator cuff with balloon arthroplasty. Progressive arthropathy since balloon resorption. Patient essentially has pseudoparalysis with poor overhead function and failed limited goals PT. Proceed with reverse total shoulder replacement and debridement of any remnants of the balloon and will require excisional debridement of old suture anchors and suture material.. Postop day 1 reverse total shoulder replacement debridement subacromial bursa excision suture anchor suture material. Still under effects of nerve block slightly with some thumb numbness which is typical. Discussed home exercises for 2 weeks and afterward will start formal PT. Patient can be discharged home after seen by OT PT and drain discontinued. Will keep on oral antibiotics for 2 weeks postop. (2) Failure of rotator cuff repair: Admission and Anticipated Discharge Date Admission Date: September 28, 2024 Subjective No complaints doing well Review of Systems Review of Systems: No chest pain shortness of breath feels well Physical Exam Musculoskeletal: Bandage dry and intact. Minimal drainage from Hemovac. Motor function returned to hand but still some numbness in the thumb. Normal circulation. Results & Data Vital Signs (Past 12 Hours) Vital Signs Temp Pulse Resp BP Pulse Ox O2 Del Method 09/29/24 07:24 36.5 C 73 16 131/80 97 Room Air 09/29/24 03:34 36.6 C 76 18 134/79 94 Room Air 09/28/24 23:17 36.4 C L 72 16 130/80 94 Room Air 09/28/24 21:12 36.3 C L 72 16 113/74 95 Room Air 09/28/24 20:08 36.5 C 74 16 113/71 95 Room Air Diagnostic Findings Well aligned reversed right shoulder replacement implants normally located
[2024-09-29] MEDS: GABAPENTIN 100 MG CAP PO SCH (07:49)
[2024-09-29] MEDS: dexAMETHasone 10 MG in SYRINGE 0 ML IV SCH (07:49)
[2024-09-29] MEDS: TAMSULOSIN HCL 0.4 MG CAP PO SCH (07:49)
[2024-09-29] MEDS: FINASTERIDE 5 MG TAB PO SCH (07:49)
[2024-09-29] MEDS: VERAPAMIL HCL 240 MG TABCR PO SCH (07:49)
[2024-09-29] MEDS: CHOLECALCIFEROL 125 MCG (5,000 UNITS) TAB PO SCH (07:50)
[2024-09-29] MEDS: MULTIVITAMIN TAB PO SCH (07:50)
[2024-09-29] MEDS ORDERED: ROSUVASTATIN CALCIUM 20 MG TAB PO SCH (09:00)
[2024-09-29] MEDS ORDERED: POTASSIUM GLUCONATE 550 MG PO SCH (09:00)
--- NOTE | 2024-09-29 14:46 | Hospitalist Progress Note ---
Date of Service September 29, 2024 Assessment & Plan (1) Rotator cuff tear arthropathy of right shoulder: Plan: Patient is a 64-year-old male with history of hypertropic cardiomyopathy, LVH, BPH, obstructive sleep apnea, diverticulosis, vitamin D deficiency, etc. presenting with right shoulder arthroplasty. Rotator cuff arthropathy, right Status post reverse total shoulder arthroplasty Patient is stable overall after surgery Pain control, PT OT, bowel regimen Hypertrophic nonobstructive cardiomyopathy LVH Patient appears to be euvolemic No cardiac symptoms Continue usual verapamil, aspirin-currently increased to twice a day by Ortho service BPH Continue with dutasteride-tamsulosin Obstructive sleep apnea Patient not tolerating CPAP Other chronic medical conditions: Diverticulosis Vitamin D deficiency Admission and Anticipated Discharge Date Admission Date: September 28, 2024 Subjective Patient seen and examined at bedside. Comfortable; not in distress. Denies fever, chills, chest pain, shortness of breath, abdominal pain or urinary symptoms. No significant overnight events Review of Systems Review of Systems: All systems reviewed & are unremarkable except as noted in Subjective Physical Exam Physical Exam: General- oriented x 3, not in distress, speaks in sentences with no effort or accessory muscle use Head- atraumatic Eyes- PERRL, EOMI, anicteric ENT- oropharynx clear Neck- supple, no JVD, no adenopathy, no thyromegaly; carotids +2/2, no bruits appreciated Lungs- clear to auscultation bilaterally, no rales/wheezes Heart- normal rate, regular rhythm; no murmur, no gallop, no rub appreciated Abdomen- normal bowel sounds, nondistended, soft, nontender, no masses or hepatosplenomegaly Neuro- alert, oriented x 3; CN 2-12 grossly intact; motor 5/5 bilaterally;sensation 100% on all extremities; no other gross focal neurologic deficits Skin- warm & dry Results & Data Results & Data Vital Signs (Past 12 Hours) Vital Signs Temp Pulse Resp BP Pulse Ox O2 Del Method 09/29/24 07:24 36.5 C 73 16 131/80 97 Room Air 09/29/24 03:34 36.6 C 76 18 134/79 94 Room Air
== END 2024-09-29 11:21 | disposition home or self-care (01) ==
LOC: ASU 10:17 → 3E 10:17